=== PATIENT | female | born 1995 | race Caucasian/White ===

== ENCOUNTER 2020-05-04 11:04 | Inpatient (IN) ==
[2020-05-04] MEDS ORDERED: LORazepam 1 MG TAB SL STA (11:26)
[2020-05-04] MEDS ORDERED: THIAMINE HCL 200 MG in SODIUM CHLORIDE 0.9% 50 ML IV STA (11:27)
[2020-05-04] MEDS ORDERED: FOLIC ACID 1 MG in SYRINGE 9.8 ML IV STA (11:27)
[2020-05-04] MEDS ORDERED: SODIUM CHLORIDE 0.9% 1000ML 1,000 ML IV SCH (11:30)
--- NOTE | 2020-05-04 11:36 | Emergency Department Note ---
Impression & Plan Alcohol withdrawal, Alcohol use disorder, Medical marijuana use ED Provider Note CHIEF COMPLAINT: Vomiting, chest pain, alcohol withdrawal HISTORY OF PRESENTING ILLNESS: This is a 24-year-old female who presents to the emergency department by private vehicle with complaint of intractable vomiting for the past 2 days. The patient reports a history of alcohol dependence, and notes that she has been drinking every day for the past 2 years. She states she drinks about 8 shots worth of vodka a day. She states that her family and friends were worried about her and wanted her to stop drinking so she recently decided to try cutting back on her alcohol intake. She states she began to deve lop withdrawal symptoms including feeling shaky and having nausea and vomiting a few days ago. She has not been able to keep anything down since then. She is worried she is going through alcohol withdrawal. Her last tolerated drink was 2 days ago, but she states she has still been sipping on vodka yesterday and today to try to help with her symptoms, although she states she just vomits it back up. She denies any previous hospitalizations for alcohol withdrawal and has never been in rehab before. She is not interested in rehab today. She states that she is having chest pain and abdominal pain that she describes as tightness and pressure, burning, constant, and she rates the pain 8/10. She denies shortness of breath. She also uses medical marijuana to manage her anxiety and states she uses this pretty much every day for the past few years. She states that she feels like she is having a panic attack right now. She denies any recent fevers or chills, diarrhea, cough or URI symptoms. She denies SI/HI. REVIEW OF SYSTEMS: A complete 10 point review of systems was reviewed with the patient with pertinent positives and negatives as per history of present illness. All else were negative. PAST MEDICAL HISTORY: Anxiety, depression SOCIAL HISTORY: Lives at home, denies tobacco use, reports daily alcohol and marijuana use ALLERGIES: No known allergies PHYSICAL EXAM: CONSTITUTIONAL: Alert and cooperative. Ill-appearing and appears very anxious and uncomfortable, actively vomiting and dry heaving. Diaphoretic. Dehydrated. HEENT: Normocephalic, atraumatic. PERRL, EOMI. Pharynx normal. Dry mucous membranes. NECK: Supple, full active range of motion without discomfort. No cervical adenopathy. RESPIRATORY: Clear to auscultation bilaterally with no wheezing, crackles, rhonchi or stridor. Equal expansion bilaterally. CARDIOVASCULAR: Tachycardic, regular rhythm with no murmurs, rubs or gallops. Normal peripheral perfusion, 2+ distal pulses in all 4 extremities. No edema. GASTROINTESTINAL: Mildly tender to palpation in the epigastric abdomen, otherwise nontender, soft and nondistended. No palpable masses or HSM. Bowel sounds present in all quadrants. No CVA tenderness bilaterally. MUSCULOSKELETAL: Full range of motion of all joints without discomfort. INTEGUMENTARY: [place], warm, diaphoretic. No rash or other significant dermatologic conditions noted. NEUROLOGIC: Alert and oriented X 4 with normal affect. No focal neurologic deficits noted. Normal strength and sensation in all 4 extremities. Normal speech. Normal gait observed. ED COURSE AND MEDICAL DECISION MAKING: CC: Patient presenting with complaint of vomiting, chest pain, alcohol withdrawal DIFFERENTIAL DIAGNOSIS: Includes, but not limited to alcohol withdrawal, cyclic vomiting syndrome, cannabis abuse, dehydration, electrolyte abnormality, acute kidney injury, acute coronary syndrome, cardiac dysrhythmia, gastroenteritis, gastritis, peptic ulcer disease, pancreatitis, among others. INTERPRETATION OF LABS: Leukocytosis, polycythemia, normal platelets, hypoglycemia, low CO2 with open anion gap, no other significant electrolyte abnormalities, normal renal function, normal liver enzymes and lipase. TSH within normal limits. Serum negative. Troponin is undetectable. UA shows 3+ ketones, 2+ glucose and 1+ protein, no signs of infection. IMAGING: XR chest 1V portable HISTORY: Atypical chest pain COMPARISON: None. FINDINGS: Questionable small hazy density within the left lung base is likely due to overlapping soft tissue. Otherwise, the lungs are clear. No pleural effusions. No pneumothorax. The heart is normal in size. IMPRESSION: No acute process. EKG: Shows sinus tachycardia with a rate of 125 bpm, normal intervals, no ST depression or elevation, no ectopy by my interpretation. No previous EKGs available for comparison. MEDICATION RECONCILIATION: I attest that I have personally reviewed the patient's current medication list. INITIAL VITAL SIGNS REVIEW: I reviewed the patient's initial vital signs and interpret them as follows: T: Afebrile; BP: Hypertensive; HR: Significantly tachycardic; RR: Within normal limits; Pulse Ox: Within normal limits on room air. MDM SUMMARY: Patient was evaluated at bedside, history and physical exam performed. Patient is alert and oriented, appears ill and is actively dry heaving and diaphoretic. No significant abdominal tenderness on exam, no acute abdomen. Patient is notably tachycardic on initial triage. She is tremulous and appears anxious as well. The patient admits to heavy alcohol use and states she was trying to cut back, she believes she is in withdrawal. Cardiac monitoring: An order was placed for continuous cardiac monitoring. The monitor shows a rate of 136 bpm with sinus tachycardia rhythm. EKG was reviewed at bedside which also shows sinus tachycardia but no acute is chemic changes. The patient was initially given sublingual Ativan to help alleviate some of her symptoms and facilitate IV placement and initiating patient's treatment. Orders were placed additionally for medical clearance labs, IV fluid bolus for hydration, IV thiamine and folate, chest x-ray to evaluate for alcohol withdrawal syndrome. Patient discussed with Dr. Leon, who agrees with my assessment, plan, and disposition. Labs and imaging reviewed as above, labs are notable for a leukocytosis and polycythemia which I suspect are due to the vomiting and dehydration. Gap is open, most likely consistent with her alcohol use. Liver enzymes and lipase are within normal limits. No acute kidney injury. Urine drug screen positive for marijuana and otherwise negative. Alcohol level is mildly elevated consistent with her recent intake, but suspected to be much lower than her baseline given that she reports drinking 8 shots of vodka per day normally. Hypoglycemia was noted on initial labs, the patient was given an amp of D50 given her significant vomiting and not eating or drinking much over the past 2 days. Repeat glucose improved. UA consistent with dehydration, negative for infection. Patient continued to complain of a lot of anxiety and vomiting, she was given additional doses of 1 mg IV Ativan and 10 mg IV Compazine. I discussed with the patient my concerns for her alcohol use and her withdrawal symptoms. She is willing to talk to the business office manager about possible inp atient treatment. Magda with the business office manager spoke with the patient and the patient is now agreeable to inpatient treatment for her alcohol use. Attempts to place the patient in an outside treatment facility were unsuccessful, there are no available treatment beds. Therefore I recommended that the patient be admitted to the hospital for detox, after which time she can be safely placed in rehab. I spoke on the phone with Dr. Wilkins, [facility] Hospitalist, who agrees to evaluate the patient for the admission. Patient reassessed multiple times throughout ED stay, she has remained hemody namically stable, her tachycardia is downtrending with IV fluids and her tremors are improved after Ativan. She is no longer actively vomiting. She also states that her chest and abdominal pain are improving. The patient was updated on all results and plan for admission here at the hospital until she is able to be placed in rehab, she verbalized understanding and was agreeable to this plan. The patient was stable at time of admission. The chart was completed utilizing [employer] Speech voice recognition software. Grammatical errors, random word insertions, pronoun errors, and incomplete sent ences are an occasional consequence of this system due to software limitations, ambient noise, and hardware issues. Any formal questions or concerns about the content, text, or information contained within the body of this dictation should be directly addressed to the nurse practitioner for clarification. Past Med/Surg History Medical History (Updated 05/04/20 @ 18:50 by ZONIA Arredondo) Alcohol use disorder Social History Smoking Status: Never smoker Hx Substance Use: Yes Preferred Language: Fijian Allergies Allergies Allergy/AdvReac Type Severity Reaction Status Date / Time No Known Allergies Allergy Unverified 05/04/20 11:48 Home Meds Home Medications Medication Instructions Recorded Confirmed Medical Marijuana 1 inh INHALATION UD 05/04/20 05/04/20 Results & Data (ED) Vital Signs Vital Signs - 24 hr 05/04/20 11:13 05/04/20 11:27 05/04/20 12:46 Temperature Temperature Source Oral Pulse Rate 158 H 132 H Pulse Rate [Apical] 125 H 134 H Pulse Rate from SpO2 Sensor 136 H Pulse Rhythm [Apical] Respiratory Rate 20 22 21 Respiratory Effort / Characteristics Non-Labored Non-Labored Respiratory Depth Normal Normal Respiratory Pattern Regular Blood Pressure 130/111 H 129/80 Blood Pressure [Right Arm] 145/91 H 129/80 Blood Pressure Mean 117 93 Blood Pressure Mean [Right Arm] 109 96 Blood Pressure Position Sitting Blood Pressure Position [Right Arm] Sitting Pulse Oximetry 96 100 97 Oxygen Delivery Method Room Air Room Air Room Air Sepsis Recent Fever Within 48 Hours No Sepsis New/Unexplained Change in Mental Status No Sepsis Action Taken by Nursing No Action Required 05/04/20 13:35 05/04/20 14:19 05/04/20 14:23 Temperature 36.7 C 36.7 C Temperature Source Oral Oral Pulse Rate 135 H Pulse Rate [Apical] 94 H Pulse Rate from SpO2 Sensor 134 H Pulse Rhythm [Apical] Regular Respiratory Rate 19 17 Respiratory Effort / Characteristics Non-Labored Respiratory Depth Normal Respiratory Pattern Regular Blood Pressure 122/70 Blood Pressure [Right Arm] 126/86 Blood Pressure Mean 74 Blood Pressure Mean [Right Arm] 99 Blood Pressure Position Blood Pressure Position [Right Arm] Pulse Oximetry 97 96 Oxygen Delivery Method Room Air Sepsis Recent Fever Within 48 Hours Sepsis New/Unexplained Change in Mental Status Sepsis Action Taken by Nursing 05/04/20 14:24 05/04/20 14:30 05/04/20 15:00 Temperature Temperature Source Pulse Rate 100 H 99 H 119 H Pulse Rate [Apical] Pulse Rate from SpO2 Sensor 101 H 111 H Pulse Rhythm [Apical] Respiratory Rate 17 18 21 Respiratory Effort / Characteristics Respiratory Depth Respiratory Pattern Blood Pressure 126/86 115/74 133/89 Blood Pressure [Right Arm] Blood Pressure Mean 109 77 96 Blood Pressure Mean [Right Arm] Blood Pressure Position Blood Pressure Position [Right Arm] Pulse Oximetry 96 97 Oxygen Delivery Method Sepsis Recent Fever Within 48 Hours Sepsis New/Unexplained Change in Mental Status Sepsis Action Taken by Nursing 05/04/20 15:30 05/04/20 15:31 Temperature Temperature Source Pulse Rate 135 H 127 H Pulse Rate [Apical] Pulse Rate from SpO2 Sensor 134 H 132 H Pulse Rhythm [Apical] Respiratory Rate 22 16 Respiratory Effort / Characteristics Respiratory Depth Respiratory Pattern Blood Pressure 125/97 Blood Pressure [Right Arm] Blood Pressure Mean 100 Blood Pressure Mean [Right Arm] Blood Pressure Position Blood Pressure Position [Right Arm] Pulse Oximetry 98 100 Oxygen Delivery Method Sepsis Recent Fever Within 48 Hours Sepsis New/Unexplained Change in Mental Status Sepsis Action Taken by Nursing Laboratory Data Result diagrams: 05/04/20 11:31 05/04/20 11:31 Lab Results 05/04/20 05/04/20 05/04/20 Range/Units 11:31 11:31 11:31 WBC Cancelled RBC Cancelled Hgb Cancelled Hct Cancelled MCV Cancelled MCH Cancelled MCHC Cancelled RDW Std Deviation Cancelled RDW Coeff of Bronson Cancelled Plt Count Cancelled MPV Cancelled Immature Gran % (Auto) Cancelled Neut % (Auto) Cancelled Lymph % (Auto) Cancelled [place] % (Auto) Cancelled Eos % (Auto) Cancelled Baso % (Auto) Cancelled Neut # (Auto) Cancelled Lymph # (Auto) Cancelled [place] # (Auto) Cancelled Eos # (Auto) Cancelled Baso # (Auto) Cancelled Immature Gran # (Auto) Cancelled Absolute Nucleated RBC Cancelled Nucleated RBC % (auto) Cancelled Neutrophils % (Manual) Cancelled Band Neutrophils % Cancelled Lymphocytes % (Manual) Cancelled Prolymphocyte % Cancelled Reactive Lymphs % (Man) Cancelled Monocytes % (Manual) Cancelled Eosinophils % (Manual) Cancelled Basophils % (Manual) Cancelled Metamyelocytes % (Man) Cancelled Myelocytes % (Man) Cancelled Promyelocytes % (Man) Cancelled Blast Cells % (Manual) Cancelled Plasma Cell % (Manual) Cancelled Other Cells % Cancelled Nucleated RBC % Cancelled Neutrophils # (Manual) Cancelled Band Neutrophils # Cancelled Total Absolute Neuts Cancelled Lymphocytes # (Manual) Cancelled Prolymphocyte # Cancelled Reactive Lymphs # Cancelled Total Abs Lymphocytes Cancelled Monocytes # (Manual) Cancelled Eosinophils # (Manual) Cancelled Basophils # (Manual) Cancelled Metamyelocytes # (Man) Cancelled Myelocytes # (Manual) Cancelled Promyelocytes # (Man) Cancelled Blast Cells # (Man) Cancelled Plasma Cell # (Manual) Cancelled Other Cells # Cancelled Nucleated RBCs # (Man) Cancelled Hypersegmented Neuts Cancelled Hyposegmented Neuts Cancelled Hypogranular Neuts Cancelled Large Granular Lymphs Cancelled # Lrg Granular Lymphs Cancelled Hairy Cells Cancelled Smudge Cells Cancelled Toxic Granulation Cancelled Toxic Vacuolation Cancelled Dohle Bodies Cancelled Elina Rods Cancelled Platelet Estimate Cancelled Hypogranular Platelets Cancelled Clumped Platelets Cancelled Giant Platelets Cancelled Platelet Satelliting Cancelled RBC Morphology Cancelled Polychromasia Cancelled Hypochromasia Cancelled Poikilocytosis Cancelled Basophilic Stippling Cancelled Anisocytosis Cancelled Microcytosis Cancelled Macrocytosis Cancelled Spherocytes Cancelled Pappenheimer Bodies Cancelled Sickle Cells Cancelled Target Cells Cancelled Tear Drop Cells Cancelled Ovalocytes Cancelled Stomatocytes Cancelled [place] Bodies Cancelled Echinocytes Cancelled Acanthocytes (Spur) Cancelled Rouleaux Cancelled RBC Agglutinates Cancelled Schistocytes Cancelled RBC Morph Comment Cancelled Sezary Cell Cancelled Sodium 140 (136-145) mmol/L Potassium 3.7 (3.5-5.1) mmol/L Chloride 103 (98-107) mmol/L Carbon Dioxide 16 L (21-32) mmol/L Anion Gap 21.0 H (3-11) BUN 13 (7-18) mg/dl Creatinine 0.77 (0.6-1.2) mg/dl Est Cr Clr Drug Dosing 95.5 ml/min Est GFR ( Amer) 125.3 Est GFR (Non-Af Amer) 108.1 BUN/Creatinine Ratio 16.2 (10-20) Glucose 63 L (70-99) mg/dl POC Glucose (70-99) mg/dl Calcium 9.7 (8.5-10.1) mg/dl Magnesium (1.8-2.4) mg/dl Total Bilirubin 1.0 (0.2-1) mg/dl AST 100 H (15-37) U/L ALT 36 (12-78) U/L Alkaline Phosphatase 72 (45-117) U/L Troponin I < 0.015 (0-0.045) ng/ml Total Protein 9.1 H (6.4-8.2) gm/dl Albumin 5.2 H (3.4-5.0) gm/dl Globulin 3.9 (2.5-4.0) gm/dl Albumin/Globulin Ratio 1.3 (0.9-2) Lipase (73-393) U/L TSH 1.270 (0.300-4.500) uIu/ml HCG, Qual (Negative) Urine Color Urine Appearance (Clear) Urine pH (4.5-7.5) Ur Specific [place] (1.000-1.030) Urine Protein (Negative) Urine Glucose (UA) (Negative) Urine Ketones (Negative) Urine Blood (Negative) Urine Nitrite (Negative) Urine Bilirubin (Negative) Urine Urobilinogen (Negative) Ur Leukocyte Esterase (Negative) Urine WBC (Auto) (0-5) /hpf Urine RBC (Auto) (0-4) /hpf U Hyaline Cast (Auto) (0-5) /lpf U Epithel Cells (Auto) (0-5) /lpf Urine Bacteria (Auto) (Negative) Salicylates < 1.7 L (2.8-20) mg/dl Urine Opiates Screen (Neg) Ur Methadone, Qual (Neg) Acetaminophen < 2 L (10-30) ug/ml Urine Barbiturates (Neg) Ur Phencyclidine (PCP) (Neg) U Amphetamin/Meth Scrn (Neg) MDMA (Ecstasy) Screen (Neg) U Benzodiazepines Scrn (Neg) Ur Cocaine Metabolite (Neg) U Marijuana (THC) Screen (Neg) Ethyl Alcohol mg/dL (0-3) mg/dl 05/04/20 05/04/20 05/04/20 Range/Units 11:31 11:31 11:31 WBC 16.88 H RBC 4.58 Hgb 17.1 H Hct 48.0 H MCV 104.8 H MCH 37.3 H MCHC 35.6 RDW Std Deviation 47.6 H RDW Coeff of Bronson 12.6 Plt Count 256 MPV 9.8 Immature Gran % (Auto) 0.2 Neut % (Auto) 80.3 Lymph % (Auto) 16.1 [place] % (Auto) 3.1 Eos % (Auto) 0.1 Baso % (Auto) 0.2 Neut # (Auto) 13.56 H Lymph # (Auto) 2.71 [place] # (Auto) 0.53 Eos # (Auto) 0.01 Baso # (Auto) 0.03 Immature Gran # (Auto) 0.04 H Absolute Nucleated RBC Nucleated RBC % (auto) Neutrophils % (Manual) Band Neutrophils % Lymphocytes % (Manual) Prolymphocyte % Reactive Lymphs % (Man) Monocytes % (Manual) Eosinophils % (Manual) Basophils % (Manual) Metamyelocytes % (Man) Myelocytes % (Man) Promyelocytes % (Man) Blast Cells % (Manual) Plasma Cell % (Manual) Other Cells % Nucleated RBC % Neutrophils # (Manual) Band Neutrophils # Total Absolute Neuts Lymphocytes # (Manual) Prolymphocyte # Reactive Lymphs # Total Abs Lymphocytes Monocytes # (Manual) Eosinophils # (Manual) Basophils # (Manual) Metamyelocytes # (Man) Myelocytes # (Manual) Promyelocytes # (Man) Blast Cells # (Man) Plasma Cell # (Manual) Other Cells # Nucleated RBCs # (Man) Hypersegmented Neuts Hyposegmented Neuts Hypogranular Neuts Large Granular Lymphs # Lrg Granular Lymphs Hairy Cells Smudge Cells Toxic Granulation Toxic Vacuolation Dohle Bodies Elina Rods Platelet Estimate Hypogranular Platelets Clumped Platelets Giant Platelets Platelet Satelliting RBC Morphology Polychromasia Hypochromasia Poikilocytosis Basophilic Stippling Anisocytosis Microcytosis Macrocytosis Spherocytes Pappenheimer Bodies Sickle Cells Target Cells Tear Drop Cells Ovalocytes Stomatocytes [place] Bodies Echinocytes Acanthocytes (Spur) Rouleaux RBC Agglutinates Schistocytes RBC Morph Comment Sezary Cell Sodium (136-145) mmol/L Potassium (3.5-5.1) mmol/L Chloride (98-107) mmol/L Carbon Dioxide (21-32) mmol/L Anion Gap (3-11) BUN (7-18) mg/dl Creatinine (0.6-1.2) mg/dl Est Cr Clr Drug Dosing ml/min Est GFR ( Amer) Est GFR (Non-Af Amer) BUN/Creatinine Ratio (10-20) Glucose (70-99) mg/dl POC Glucose (70-99) mg/dl Calcium (8.5-10.1) mg/dl Magnesium (1.8-2.4) mg/dl Total Bilirubin (0.2-1) mg/dl AST (15-37) U/L ALT (12-78) U/L Alkaline Phosphatase (45-117) U/L Troponin I (0-0.045) ng/ml Total Protein (6.4-8.2) gm/dl Albumin (3.4-5.0) gm/dl Globulin (2.5-4.0) gm/dl Albumin/Globulin Ratio (0.9-2) Lipase (73-393) U/L TSH (0.300-4.500) uIu/ml HCG, Qual Negative (Negative) Urine Color Urine Appearance (Clear) Urine pH (4.5-7.5) Ur Specific [place] (1.000-1.030) Urine Protein (Negative) Urine Glucose (UA) (Negative) Urine Ketones (Negative) Urine Blood (Negative) Urine Nitrite (Negative) Urine Bilirubin (Negative) Urine Urobilinogen (Negative) Ur Leukocyte Esterase (Negative) Urine WBC (Auto) (0-5) /hpf Urine RBC (Auto) (0-4) /hpf U Hyaline Cast (Auto) (0-5) /lpf U Epithel Cells (Auto) (0-5) /lpf Urine Bacteria (Auto) (Negative) Salicylates (2.8-20) mg/dl Urine Opiates Screen (Neg) Ur Methadone, Qual (Neg) Acetaminophen (10-30) ug/ml Urine Barbiturates (Neg) Ur Phencyclidine (PCP) (Neg) U Amphetamin/Meth Scrn (Neg) MDMA (Ecstasy) Screen (Neg) U Benzodiazepines Scrn (Neg) Ur Cocaine Metabolite (Neg) U Marijuana (THC) Screen (Neg) Ethyl Alcohol mg/dL 56.0 H (0-3) mg/dl 05/04/20 05/04/20 05/04/20 Range/Units 11:31 11:31 12:44 WBC RBC Hgb Hct MCV MCH MCHC RDW Std Deviation RDW Coeff of Bronson Plt Count MPV Immature Gran % (Auto) Neut % (Auto) Lymph % (Auto) [place] % (Auto) Eos % (Auto) Baso % (Auto) Neut # (Auto) Lymph # (Auto) [place] # (Auto) Eos # (Auto) Baso # (Auto) Immature Gran # (Auto) Absolute Nucleated RBC Nucleated RBC % (auto) Neutrophils % (Manual) Band Neutrophils % Lymphocytes % (Manual) Prolymphocyte % Reactive Lymphs % (Man) Monocytes % (Manual) Eosinophils % (Manual) Basophils % (Manual) Metamyelocytes % (Man) Myelocytes % (Man) Promyelocytes % (Man) Blast Cells % (Manual) Plasma Cell % (Manual) Other Cells % Nucleated RBC % Neutrophils # (Manual) Band Neutrophils # Total Absolute Neuts Lymphocytes # (Manual) Prolymphocyte # Reactive Lymphs # Total Abs Lymphocytes Monocytes # (Manual) Eosinophils # (Manual) Basophils # (Manual) Metamyelocytes # (Man) Myelocytes # (Manual) Promyelocytes # (Man) Blast Cells # (Man) Plasma Cell # (Manual) Other Cells # Nucleated RBCs # (Man) Hypersegmented Neuts Hyposegmented Neuts Hypogranular Neuts Large Granular Lymphs # Lrg Granular Lymphs Hairy Cells Smudge Cells Toxic Granulation Toxic Vacuolation Dohle Bodies Elina Rods Platelet Estimate Hypogranular Platelets Clumped Platelets Giant Platelets Platelet Satelliting RBC Morphology Polychromasia Hypochromasia Poikilocytosis Basophilic Stippling Anisocytosis Microcytosis Macrocytosis Spherocytes Pappenheimer Bodies Sickle Cells Target Cells Tear Drop Cells Ovalocytes Stomatocytes [place] Bodies Echinocytes Acanthocytes (Spur) Rouleaux RBC Agglutinates Schistocytes RBC Morph Comment Sezary Cell Sodium (136-145) mmol/L Potassium (3.5-5.1) mmol/L Chloride (98-107) mmol/L Carbon Dioxide (21-32) mmol/L Anion Gap (3-11) BUN (7-18) mg/dl Creatinine (0.6-1.2) mg/dl Est Cr Clr Drug Dosing ml/min Est GFR ( Amer) Est GFR (Non-Af Amer) BUN/Creatinine Ratio (10-20) Glucose (70-99) mg/dl POC Glucose 236 H (70-99) mg/dl Calcium (8.5-10.1) mg/dl Magnesium 1.8 (1.8-2.4) mg/dl Total Bilirubin (0.2-1) mg/dl AST (15-37) U/L ALT (12-78) U/L Alkaline Phosphatase (45-117) U/L Troponin I (0-0.045) ng/ml Total Protein (6.4-8.2) gm/dl Albumin (3.4-5.0) gm/dl Globulin (2.5-4.0) gm/dl Albumin/Globulin Ratio (0.9-2) Lipase 94 (73-393) U/L TSH (0.300-4.500) uIu/ml HCG, Qual (Negative) Urine Color Urine Appearance (Clear) Urine pH (4.5-7.5) Ur Specific [place] (1.000-1.030) Urine Protein (Negative) Urine Glucose (UA) (Negative) Urine Ketones (Negative) Urine Blood (Negative) Urine Nitrite (Negative) Urine Bilirubin (Negative) Urine Urobilinogen (Negative) Ur Leukocyte Esterase (Negative) Urine WBC (Auto) (0-5) /hpf Urine RBC (Auto) (0-4) /hpf U Hyaline Cast (Auto) (0-5) /lpf U Epithel Cells (Auto) (0-5) /lpf Urine Bacteria (Auto) (Negative) Salicylates (2.8-20) mg/dl Urine Opiates Screen (Neg) Ur Methadone, Qual (Neg) Acetaminophen (10-30) ug/ml Urine Barbiturates (Neg) Ur Phencyclidine (PCP) (Neg) U Amphetamin/Meth Scrn (Neg) MDMA (Ecstasy) Screen (Neg) U Benzodiazepines Scrn (Neg) Ur Cocaine Metabolite (Neg) U Marijuana (THC) Screen (Neg) Ethyl Alcohol mg/dL (0-3) mg/dl 05/04/20 05/04/20 05/04/20 Range/Units 13:32 13:32 14:47 WBC RBC Hgb Hct MCV MCH MCHC RDW Std Deviation RDW Coeff of Bronson Plt Count MPV Immature Gran % (Auto) Neut % (Auto) Lymph % (Auto) [place] % (Auto) Eos % (Auto) Baso % (Auto) Neut # (Auto) Lymph # (Auto) [place] # (Auto) Eos # (Auto) Baso # (Auto) Immature Gran # (Auto) Absolute Nucleated RBC Nucleated RBC % (auto) Neutrophils % (Manual) Band Neutrophils % Lymphocytes % (Manual) Prolymphocyte % Reactive Lymphs % (Man) Monocytes % (Manual) Eosinophils % (Manual) Basophils % (Manual) Metamyelocytes % (Man) Myelocytes % (Man) Promyelocytes % (Man) Blast Cells % (Manual) Plasma Cell % (Manual) Other Cells % Nucleated RBC % Neutrophils # (Manual) Band Neutrophils # Total Absolute Neuts Lymphocytes # (Manual) Prolymphocyte # Reactive Lymphs # Total Abs Lymphocytes Monocytes # (Manual) Eosinophils # (Manual) Basophils # (Manual) Metamyelocytes # (Man) Myelocytes # (Manual) Promyelocytes # (Man) Blast Cells # (Man) Plasma Cell # (Manual) Other Cells # Nucleated RBCs # (Man) Hypersegmented Neuts Hyposegmented Neuts Hypogranular Neuts Large Granular Lymphs # Lrg Granular Lymphs Hairy Cells Smudge Cells Toxic Granulation Toxic Vacuolation Dohle Bodies Elina Rods Platelet Estimate Hypogranular Platelets Clumped Platelets Giant Platelets Platelet Satelliting RBC Morphology Polychromasia Hypochromasia Poikilocytosis Basophilic Stippling Anisocytosis Microcytosis Macrocytosis Spherocytes Pappenheimer Bodies Sickle Cells Target Cells Tear Drop Cells Ovalocytes Stomatocytes [place] Bodies Echinocytes Acanthocytes (Spur) Rouleaux RBC Agglutinates Schistocytes RBC Morph Comment Sezary Cell Sodium (136-145) mmol/L Potassium (3.5-5.1) mmol/L Chloride (98-107) mmol/L Carbon Dioxide (21-32) mmol/L Anion Gap (3-11) BUN (7-18) mg/dl Creatinine (0.6-1.2) mg/dl Est Cr Clr Drug Dosing ml/min Est GFR ( Amer) Est GFR (Non-Af Amer) BUN/Creatinine Ratio (10-20) Glucose (70-99) mg/dl POC Glucose 102 H (70-99) mg/dl Calcium (8.5-10.1) mg/dl Magnesium (1.8-2.4) mg/dl Total Bilirubin (0.2-1) mg/dl AST (15-37) U/L ALT (12-78) U/L Alkaline Phosphatase (45-117) U/L Troponin I (0-0.045) ng/ml Total Protein (6.4-8.2) gm/dl Albumin (3.4-5.0) gm/dl Globulin (2.5-4.0) gm/dl Albumin/Globulin Ratio (0.9-2) Lipase (73-393) U/L TSH (0.300-4.500) uIu/ml HCG, Qual (Negative) Urine Color Yellow Urine Appearance Clear (Clear) Urine pH 5.0 (4.5-7.5) Ur Specific [place] 1.020 (1.000-1.030) Urine Protein 1+ H (Negative) Urine Glucose (UA) 2+ H (Negative) Urine Ketones 3+ H (Negative) Urine Blood Negative (Negative) Urine Nitrite Negative (Negative) Urine Bilirubin Negative (Negative) Urine Urobilinogen Negative (Negative) Ur Leukocyte Esterase Negative (Negative) Urine WBC (Auto) 0 (0-5) /hpf Urine RBC (Auto) 0-4 (0-4) /hpf U Hyaline Cast (Auto) 0 (0-5) /lpf U Epithel Cells (Auto) 0-5 (0-5) /lpf Urine Bacteria (Auto) Negative (Negative) Salicylates (2.8-20) mg/dl Urine Opiates Screen Neg (Neg) Ur Methadone, Qual Neg (Neg) Acetaminophen (10-30) ug/ml Urine Barbiturates Neg (Neg) Ur Phencyclidine (PCP) Neg (Neg) U Amphetamin/Meth Scrn Neg (Neg) MDMA (Ecstasy) Screen Neg (Neg) U Benzodiazepines Scrn Neg (Neg) Ur Cocaine Metabolite Neg (Neg) U Marijuana (THC) Screen Pos H (Neg) Ethyl Alcohol mg/dL (0-3) mg/dl Administered Medications Discontinued Medications Capsaicin (Capsaicin Cr 0.075% 60 Gm Tube) 1 appln EXT NOW STA Stop: 05/04/20 11:42 Last Admin: 05/04/20 11:58 Dose: 1 appln Documented by: [id number] Dextrose (Dextrose 50% 50 Ml Syringe) 50 ml IV NOW STA Stop: 05/04/20 12:16 Last Admin: 05/04/20 12:22 Dose: 50 ml Documented by: [id number] Sodium Chloride (Nss 1000ml) 1,000 mls @ 999 mls/hr IV .Q1H1M SWETHA Stop: 05/04/20 12:30 Last Infusion: 05/04/20 12:35 Dose: 0 mls/hr Documented by: [id number] Admin: 05/04/20 11:34 Dose: 999 mls/hr Documented by: [id number] Folic Acid 1 mg/ Syringe 10 mls @ 5 mls/min IV NOW STA Stop: 05/04/20 11:28 Last Admin: 05/04/20 12:28 Dose: 5 mls/min Documented by: [id number] Thiamine HCl 200 mg/ Sodium (Chloride) 52 mls @ 208 mls/hr IV NOW STA Stop: 05/04/20 11:41 Last Infusion: 05/04/20 12:43 Dose: 0 mls/hr Documented by: [id number] Admin: 05/04/20 12:28 Dose: 208 mls/hr Documented by: [id number] Lorazepam (Ativan) 1 mg in 2 mls @ 2 mls/min IV NOW STA Stop: 05/04/20 13:46 Last Admin: 05/04/20 14:08 Dose: 2 mls/min Documented by: [id number] Prochlorperazine (Compazine) 2 mls @ 1 mls/min IV ONE ONE Stop: 05/04/20 13:46 Last Admin: 05/04/20 14:07 Dose: 1 mls/min Documented by: [id number] Lorazepam (Lorazepam 1 Mg Tab) 1 mg SL NOW STA Stop: 05/04/20 11:27 Last Admin: 05/04/20 11:31 Dose: 1 mg Documented by: [id number] Discharge Plan Visit Data Chief Complaint: Alcohol Withdrawal Stated Complaint: VOMITING ED Provider: Krishna Leon ED Midlevel Provider: Sima Bermudez Discharge Problem: Alcohol withdrawal, Alcohol use disorder, Medical marijuana use Patient Disposition: Admitted As Inpatient Discharge Instructions Interventions: ED Discharge Assessment Last Done: 05/04/20 18:06 Discharge Problem: Alcohol withdrawal Qualifiers: Complication of substance-induced condition: with unspecified complication Qualified Code(s): F10.239 - Alcohol dependence with withdrawal, unspecified
[2020-05-04] MEDS ORDERED: CAPSAICIN CR 0.075% 60 GM TUBE EXT STA (11:41)
--- NOTE | 2020-05-04 11:55 | XRay Report ---
XR chest 1V portable HISTORY: Atypical chest pain COMPARISON: None. FINDINGS: Questionable small hazy density within the left lung base is likely due to overlapping soft tissue. Otherwise, the lungs are clear. No pleural effusions. No pneumothorax. The heart is normal i n size. IMPRESSION: No acute process. ACT 112: Negative or not required by law. Electronically signed by: Cyril Muhammad M.D. 05/04/2020 11:54 AM
[2020-05-04 12:03] LABS: Pregnancy Test, Serum Negative (Negative)
[2020-05-04 12:13] LABS: Hemoglobin 17.1 g/dL (12.0-16.0); Mean Corpuscular Hemoglobin 37.3 pg (25-34); Mean Corpuscular Hgb Conc 35.6 g/dL (32-36); Mean Corpuscular Volume 104.8 fL (80-100); Mean Platelet Volume 9.8 fL (7.4-10.4); Platelet Count 256 K/uL (130-400); RDW Coefficient of Variation 12.6 % (11.5-14.5); RDW Standard Deviation 47.6 fL (36.4-46.3); Red Blood Count 4.58 M/uL (4.2-5.4); White Blood Count 16.88 K/uL (4.8-10.8)
[2020-05-04 12:14] LABS: Alanine Aminotransferase 36 U/L (12-78); Albumin Level 5.2 gm/dl (3.4-5.0); Aspartate Aminotransferase 100 U/L (15-37); BUN Creatinine Ratio 16.2 (10-20); Blood Urea Nitrogen 13 mg/dl (7-18); Calcium 9.7 mg/dl (8.5-10.1); Carbon Dioxide 16 mmol/L (21-32); Chloride 103 mmol/L (98-107); Creatinine Clr Calc Pharmacy 95.5 ml/min; Est GFR (African American) 125.3; Est GFR (Non-African American) 108.1; Glucose 63 mg/dl (70-99); Potassium 3.7 mmol/L (3.5-5.1); Sodium 140 mmol/L (136-145)
[2020-05-04] MEDS ORDERED: DEXTROSE 50% 50 ML SYRINGE IV STA (12:15)
[2020-05-04 12:22] LABS: Albumin Globulin Ratio 1.3 (0.9-2); Alkaline Phosphatase 72 U/L (45-117); Globulin 3.9 gm/dl (2.5-4.0); Total Protein 9.1 gm/dl (6.4-8.2); Troponin I < 0.015 ng/ml (0-0.045)
[2020-05-04 12:31] LABS: Basophils # (auto) 0.03 K/uL (0-0.2); Basophils % (auto) 0.2 %; Eosinophils # (auto) 0.01 K/uL (0-0.5); Eosinophils % (auto) 0.1 %; Immature Granulocytes # (auto) 0.04 K/uL (0.00-0.02); Immature Granulocytes % (auto) 0.2 %; Lymphocytes # (auto) 2.71 K/uL (1.2-3.4); Lymphocytes % (auto) 16.1 %; Monocytes # (auto) 0.53 K/uL (0.11-0.59); Monocytes % (auto) 3.1 %; Neutrophils # (auto) 13.56 K/uL (1.4-6.5); Neutrophils % (auto) 80.3 %
[2020-05-04 12:54] LABS: Acetaminophen < 2 ug/ml (10-30); Salicylate < 1.7 mg/dl (2.8-20)
[2020-05-04] MEDS ORDERED: LORazepam 1 MG/2 ML VIAL IV STA ×2 (13:45→21:09)
[2020-05-04] MEDS ORDERED: PROCHLORPERAZINE 2 ML IV ONE (13:45)
[2020-05-04 13:59] LABS: Appearance Urine Clear (Clear); Bacteria Urine Automated Negative (Negative); Bilirubin Urine Negative (Negative); Blood Urine Negative (Negative); Cast Urine Automated 0 /lpf (0-5); Color Urine Yellow; Epithelial Cell Urine Auto 0-5 /lpf (0-5); Glucose Urine UA 2+ (Negative); Ketones Urine 3+ (Negative); Leukocyte Esterase Urine Negative (Negative); Nitrite Urine Negative (Negative); Protein Urine 1+ (Negative); RBC Urine Automated 0-4 /hpf (0-4); Urobilinogen Urine Negative (Negative); WBC Urine Automated 0 /hpf (0-5)
[2020-05-04 14:20] LABS: Amphetamines+Metham, Urine Neg (Neg); Barbiturates, Urine Neg (Neg); Benzodiazepine, Urine Neg (Neg); Cocaine, Urine Neg (Neg); MDMA (Ecstacy), Urine Neg (Neg); Methadone, Urine Neg (Neg); Opiate, Urine Neg (Neg); Phencyclidine, Urine Neg (Neg)
--- NOTE | 2020-05-04 15:47 | History & Physical Report ---
Date of Service May 04, 2020 Assessment & Plan (1) Alcohol withdrawal: Concerning she is having alcohol withdrawal with a positive alcohol level. 2 mg Ativan in ER making patient significantly sedated. Therefore will reduce in half our protocol IV lorazepam dosing per AWSS (2) Intractable nausea and vomiting: Suspect this will improve with treatment for alcohol withdrawal as above with lorazepam. Second line use capsaicin cream due to concern for cannabis hyperemesis syndrome Third line use ondansetron as needed (3) Alcohol use disorder: Consult child support case officer for discharge planning - patient wishes for inpatient rehab Thiamine 100 mg p.o. every morning Vitamin B12 level in a.m. (4) Medical marijuana use: Recommend cessation due to possible concern for cannabis hyperemesis syndrome. (5) Leukocytosis: Suspected stress reaction to alcohol withdrawal. Possible secondary to gastroenteritis. UA negative for infection. Chest x-ray negative for infection. Patient is nonseptic therefore will defer blood cultures but these could be considered if WBC not improving by tomorrow. (6) Hypoglycemia: Dextrose given in ER. BSG ACHS with hypoglycemia protocol (7) Increased anion gap metabolic acidosis: Suspect from alcoholic ketoacidosis. (8) Depression with anxiety: Recommend cessation of medical marijuana as above. (9) Borderline personality disorder: Admission and Anticipated Discharge Date Admission Date: 05/04/2020 History of Present Illness Chief Complaint: Nausea, vomiting Primary Care Provider: Silvia Brown MD Renetta Baumann is a 24 year old female with alcohol use disorder who presents to the ER with intractable vomiting, abdominal pain. She reports cutting back on her alcohol intake causing her intermittent nausea and vomiting for the past 2 months. Prior to this she would drink approximately 10 shots of vodka a day. More recently she has been having 6-7 shots per day. For the past 2 days because of her nausea and vomiting she has been unable have any oral intake. Asssociated increased anxiety and tremors. No hallucinations. No history of alcohol withdrawal seizures. She also smokes medical marijuana but thinks this helps her nausea if anything. Allergies Allergy/AdvReac Type Severity Reaction Status Date / Time No Known Allergies Allergy Unverified 05/04/20 11:48 Home Medications Medication Instructions Recorded Confirmed Type gabapentin 100 mg PO DAILY #3 cap 05/05/20 Rx sertraline 25 mg PO DAILY 30 Days #30 tab 05/05/20 Rx Past Med/Surg History Medical History Alcohol use disorder Borderline personality disorder Depression with anxiety Surgical History No significant past surgical history Social History Smoking Status: Never smoker Second Hand Exposure: No; Do You Dip or Chew Tobacco: No; Hx Alcohol Use: Yes Alcohol type: hard liquor Hx Substance Use: Yes Last Used Substance Other:: meth 1 month ago, LSD in October Substance Use Type Other:: LSD and meth Preferred Language: Finnish Communication Ability: Effective 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 Beliefs That Will Affect Care: None Current Living Situation: Significant Other Other Information That Helps Us Care for You: No Feels Safe at Home: Yes Safety Concerns: Feels Safe At This Time Assistive Devices: None Review of Systems Review of Systems: All systems reviewed & are unremarkable except as noted in HPI & below Physical Exam Constitutional: well developed; + not well nourished and no acute distress Eyes: PERRL, conjunctivae normal, anicteric sclerae ENMT: external ear and nose normal, oropharynx normal Neck: trachea midline Respiratory: normal respiratory effort, lungs clear to auscultation Cardiovascular: RRR, no murmur, no edema Gastrointestinal (Abdomen): normal bowel sounds, soft, nontender, no hepatosplenomegaly Musculoskeletal: no cyanosis or clubbing, extremities motor strength 5/5 Skin: no rashes, warm and dry Neurologic: moves all extremities and awake; not confused Psychiatric: A+Ox3, euthymic affect Genitourinary: no CVA tenderness Results & Data Results & Data ([facility]) Vital Signs (Past 12 Hours) Vital Signs Temp Pulse Pulse Resp BP BP Pulse Ox 05/04/20 14:23 36.7 C 94 H 17 126/86 96 05/04/20 14:19 36.7 C 05/04/20 13:35 135 H 19 122/70 97 05/04/20 12:46 132 H 134 H 21 129/80 129/80 97 05/04/20 11:27 125 H 22 145/91 H 100 05/04/20 11:13 158 H 20 130/111 H 96 Diagnostic Findings XR chest 1V portable IMPRESSION: No acute process. Medications Administered ER medications given: NSS 1 L bolus Lorazepam 1 mg sublingual Folic acid 1 mg IV Thiamine 200 mg IV Capsaicin 1 topical application Dextrose 50% 50 mL IV Lorazepam 1 mg IV Compazine 10 mg IV ECG Indication: altered mental status Rate (beats per minute): 125 Rhythm: sinus tachycardia Findings: no acute ischemic change Comparison ECG Date: no prior available Code Status & VTE Plan Code Status Full VTE Prophylaxis Plan VTE Prophylaxis will be ordered: No Reason for no VTE drug order: Treatment not indicated Reason for no VTE mechanical prophylaxis: Treatment not indicated PG Care Time/CCT Total # of Minutes Spent Total Time Spent with Patient: Total time spent is greater than 50% in coordination of care (as documented) at patient's floor/unit and/or counseling patient: Coding Level of Care Code 19474 Initial Inpt Care Lvl 3 Diagnoses Alcohol withdrawal F10.239 Intractable nausea and vomiting R11.2 Alcohol use disorder Medical marijuana use Z79.899 Leukocytosis D72.829 Hypoglycemia E16.2 Increased anion gap metabolic acidosis E87.2 Depression with anxiety F41.8 Borderline personality disorder F60.3
[2020-05-04] MEDS ORDERED: ATIVAN IV ALCOHOL WITHDRAWL IV PRN (18:29)
[2020-05-04] MEDS ORDERED: LORazepam 0.5 MG/1 ML VIAL IV PRN (18:29)
[2020-05-04] MEDS ORDERED: LORazepam 1.5 MG/3 ML VIAL IV PRN (18:29)
[2020-05-04] MEDS ORDERED: CAPSAICIN CR 0.075% 60 GM TUBE EXT PRN (18:29)
[2020-05-04] MEDS ORDERED: LORazepam 1 MG/2 ML VIAL IV PRN (18:29)
[2020-05-04] MEDS: D5W AND 1/2NSS 1,000 ML IV SCH (19:46)
[2020-05-04] MEDS: THIAMINE HCL 100 MG TAB PO SCH (19:51)
[2020-05-04] MEDS: FAMOTIDINE 20 MG in SYRINGE 3 ML IV SCH (19:51)
[2020-05-04] MEDS ORDERED: ONDANSETRON INJ 2 MG/ML 2 ML VIAL IV PRN (20:44)
[2020-05-04] MEDS ORDERED: GLUCOSE 40% GEL 15 GM TUBE PO PRN (22:07)
[2020-05-04] MEDS ORDERED: GLUCAGON FOR INJ 1 MG VIAL SQ PRN (22:07)
[2020-05-04] MEDS ORDERED: GLUCOSE 10 TABS/TUBE PO PRN (22:07)
[2020-05-04] MEDS ORDERED: DEXTROSE 50% 50 ML SYRINGE IV PRN (22:07)
[2020-05-04] MEDS ORDERED: CARBOHYDRATES FOR HYPOGLYCEMIA PO PRN (22:07)
[2020-05-05] MEDS ORDERED: MIRTAZAPINE TAB 15 MG TAB PO STA (04:43)
[2020-05-05] MEDS: D5W AND 1/2NSS 1,000 ML IV SCH (04:58)
[2020-05-05 06:28] LABS: Basophils # (auto) 0.01 K/uL (0-0.2); Basophils % (auto) 0.1 %; Eosinophils # (auto) 0.04 K/uL (0-0.5); Eosinophils % (auto) 0.6 %; Hematocrit (blood only) 39.2 % (37-47); Hemoglobin 13.7 g/dL (12.0-16.0); Immature Granulocytes # (auto) 0.02 K/uL (0.00-0.02); Immature Granulocytes % (auto) 0.3 %; Lymphocytes # (auto) 1.19 K/uL (1.2-3.4); Lymphocytes % (auto) 16.7 %; Mean Corpuscular Hemoglobin 36.4 pg (25-34); Mean Corpuscular Hgb Conc 34.9 g/dL (32-36); Mean Corpuscular Volume 104.3 fL (80-100); Mean Platelet Volume 9.4 fL (7.4-10.4); Monocytes % (auto) 11.2 %; Neutrophils # (auto) 5.06 K/uL (1.4-6.5); Neutrophils % (auto) 71.1 %; Platelet Count 154 K/uL (130-400); RDW Coefficient of Variation 12.4 % (11.5-14.5); RDW Standard Deviation 46.8 fL (36.4-46.3); Red Blood Count 3.76 M/uL (4.2-5.4); White Blood Count 7.12 K/uL (4.8-10.8)
--- NOTE | 2020-05-05 06:47 | Electrocardiogram Report ---
Test Reason : Blood Pressure : / mmHG Vent. Rate : 125 BPM Atrial Rate : 125 BPM P-R Int : 144 ms QRS Dur : 070 ms QT Int : 322 ms P-R-T Axes : 073 086 019 degrees QTc Int : 464 ms Sinus tachycardia Biatrial enlargement Cannot rule out Anterior infarct , age undetermined Abnormal ECG No previous ECGs available Confirmed by Nino Zhang ([id number]) on 05/05/2020 6:47:38 AM Referred By: Confirmed By:Nino Zhang
[2020-05-05 06:58] LABS: Albumin Level 4.1 gm/dl (3.4-5.0); Creatinine Clr Calc Pharmacy 117.9 ml/min; Est GFR (African American) 148.7; Est GFR (Non-African American) 128.3; Potassium 3.7 mmol/L (3.5-5.1)
[2020-05-05 07:01] LABS: Albumin Globulin Ratio 1.1 (0.9-2); Bilirubin,Total 1.5 mg/dl (0.2-1); Globulin 3.7 gm/dl (2.5-4.0); Total Protein 7.8 gm/dl (6.4-8.2)
[2020-05-05] MEDS: THIAMINE HCL 100 MG TAB PO SCH (08:18)
[2020-05-05] MEDS ORDERED: FOLIC ACID 1 MG TAB PO SCH (09:00)
[2020-05-05] MEDS: FAMOTIDINE 20 MG in SYRINGE 3 ML IV SCH (09:55)
[2020-05-05] MEDS ORDERED: GABAPENTIN 400 MG CAP PO ONE (16:00)
--- NOTE | 2020-05-05 17:32 | Discharge Summary ---
Date of Service May 05, 2020 Admission HPI Per Admitting Provider Renetta Baumann is a 24 year old female with alcohol use disorder who presents to the ER with intractable vomiting, abdominal pain. She reports cutting back on her alcohol intake causing her intermittent nausea and vomiting for the past 2 months. Prior to this she would drink approximately 10 shots of vodka a day. More recently she has been having 6-7 shots per day. For the past 2 days because of her nausea and vomiting she has been unable She also smokes medical marijuana but thinks this helps her nausea if anything. Admission Exam Per Admitting Provider Constitutional: well developed; + not well nourished and no acute distress Eyes: PERRL, conjunctivae normal, anicteric sclerae ENMT: external ear and nose normal, oropharynx normal Neck: trachea midline Respiratory: normal respiratory effort, lungs clear to auscultation Cardiovascular: RRR, no murmur, no edema Gastrointestinal (Abdomen): normal bowel sounds, soft, nontender, no hepatosplenomegaly Musculoskeletal: no cyanosis or clubbing, extremities motor strength 5/5 Skin: no rashes, warm and dry Neurologic: moves all extremities and awake; not confused Psychiatric: A+Ox3, euthymic affect Genitourinary: no CVA tenderness Principal Diagnosis alcohol withdrawal nausea and vomiting Discharge Exam Constitutional Tired-appearing 24 year old female who is sitting on her hospital bed upon my arrival. She is interactive and engaged throughout our conversation, and opens up the more we talk. NAD. Eyes + anicteric sclerae Respiratory normal respiratory effort, lungs clear to auscultation Cardiovascular RRR, no murmur, no edema Gastrointestinal (Abdomen) normal bowel sounds, soft, nontender, no hepatosplenomegaly Neurologic no asterixis Psychiatric A+Ox3, euthymic affect Discharge Data Allergies Allergy/AdvReac Type Severity Reaction Status Date / Time No Known Allergies Allergy Unverified 05/04/20 11:48 Consultations 05/04/20 15:39 ED Decision to Admit Stat 05/04/20 18:29 Consult Case Management - Discharge Planning Routine Hospital Course (1) Alcohol withdrawal: Renetta is a 24-year-old female with a notable history of depression and anxiety who presented to [facility] on 05/04 for intractable vomiting and abdominal pain for about two days, found to have an alcohol level on arrival. Her last reported/ingested drink was approx. 2 days ago. She remained hemodynamically stable throughout her stay. Alcohol Withdrawal - Clinically, patient reported significant nausea and vomiting for about 2 days prior to her arrival to the ER. Also reported to experience increased anxiety and tremors. No prior h/o alcohol withdrawal seizures - Diagnostically, was found to have mild transaminitis throughout stay (AST 100->58), increased anion gap metabolic acidosis, hypoglycemia, and elevated MCV -- all likely d/t chronic alcohol use and withdrawal - Last ingested drink was approx. 2 days prior to admission per patient - In the ER, found to have alcohol level of 56 mg/dL alongside +THC - AWSS protocol utilized -- patient did receive Ativan 2mg in ED, and an additional 1mg dose x 2 throughout her stay - Throughout her two days here, did show marked improvement in symptoms as well as goals for cessation (see below) - Thiamine 100mg PO qAM - Upon discharge: given that her second day here was her 4th day out from last drink, proceeded with gabapentin taper as follows: 400mg x 1 (given in hospital) --> 200mg on Day 1 of d/c --> 100mg on Day 2 of d/c - Hemodynamically stable prior to d/c Alcohol Use Disorder - Significant time was spent during this admission discussing alcohol use as well as goals of care moving forward - Was found to have mild transaminitis throughout stay (AST 100-->58 on day 2) - Notes that she has been utilizing anywhere from 8-10 shots of Vodka daily and would "...get [her] calories from them" - Initially, patient expressed desire to proceed with inpatient rehab: however, throughout her stay, did wish to return to outpatient AUD support group which she has attended in the past - Case management was consulted and worked closely with patient as well - Does note that alcohol has been something that has helped her with feelings of anxiety - Moving forward, would like help discontinuing alcohol use so similar hospitalizations don't occur again: - Discussed anxiety and depression management, as below - Upon d/c, was very interested in starting PO naltrexone in the outpatient setting: spent significant time with education on this and possible benefits - Prior to d/c, she did call her fiancee (who she will be returning home with) to discard/hide all the alcohol in the house so she wouldn't utilize Nausea and Vomiting - Likely from alcohol withdrawal, but may have been a component of CHS, too - Improved throughout stay; not present on admission - Can consider d/c of medical marijuana in outpatient setting Anxiety and Depression - Patient does report worsening feelings of both anxiety and depression (anxiety>depression in severity) over the past several months - Says that this anxiety has become bad enough to the point where she'll have to recluse herself from situations / being around other people / has affected ADLs - Has engaged in self-harming behavior in the past, in the form of cutting her wrists -- last time, ~3mo ago per patient. - Was put on one-to-one during her stay here out of initial concerns for further self-harm - Consistently denied SI/HI throughout stay prior to d/c - Notes alcohol aids with her symptoms of anxiety - Amenable to starting sertraline 25mg PO once daily upon d/c with further w/u in the outpatient setting - Do feel with these two problems optimized, AUD control will have better chance of success / change - Advise caution with medical marijuana use, as above -- continue to follow in outpatient setting Borderline Personality Disorder: Noted, as above. Leukocytosis: Noted on admission. Likely reactive from stress of withdrawal. Resolved prior to d/c Hypoglycemia: Noted on admission to 63. Given dextrose in ER. Followed throughout stay, resolved day of d/c (2) Intractable nausea and vomiting: (3) Alcohol use disorder: (4) Medical marijuana use: (5) Leukocytosis: (6) Hypoglycemia: (7) Increased anion gap metabolic acidosis: (8) Depression with anxiety: (9) Borderline personality disorder: Total Time Total Time Spent Total Time Spent (In Minutes): 1 night Total Time Includes: Examination of the Patient, Discharge Planning, Medication Reconciliation, Communication With Other Providers and Other Discharge Plan Discharge Items Patient Disposition: Home - Self-Care Reason For Visit: ALCOHOL WITHDRAWAL Discharge Diagnosis: alcohol withdrawal Condition on Discharge: Good Activity: Per Instructions section Non-emergency contact: Primary Care Provider and Hospitalist Call non-emergency contact if: you have any medication questions and your symptoms worsen Follow-up/Referrals: Silvia Brown MD [Primary Care Provider] - Diet: Regular Addtl Attending Provider Instructions: You were seen at [facility] on 05/04-05/05 for nausea and vomiting, alongside concern for alcohol withdrawal -- you noted that your last drink you were able to keep down was on ~05/02. Upon your admission, you underwent several lab tests, which did demonstrate the presence of alcohol in the blood alongside a mild elevation in liver enzymes. This elevation demonstrates a mild degree of liver damage caused, likely, by the directly of the alcohol. You were monitored throughout your time here for the effects of alcohol withdrawal. You received some medication to help with anxiety and nausea during this time. Because you demonstrated continued improvement throughout your stay, we spent significant time discussing plans for moving forward. In this plan includes management plans for anxiety and alcohol dependence. As we discussed, the two problems can be heavily interrelated, but also require their own separate treatment. For anxiety, we discussed initiating a medication -- sertraline (Zoloft) -- to help your symptoms; this will also require follow-ups with a primary care provider and possibly contribution from therapy. For alcohol dependence, we discussed many options for this moving forward, including inpatient vs. outpatient rehabilitation strategies. In addition to maintaining PCP follow-up and a goal of initiating naltrexone, you also were seeking to pursue an outpatient alcohol dependence support group. You were amenable to setting this up on discharge. You are to return home with your fiancee and schedule a follow-up visit with your PCP, who we will help you establish. You will receive a call soon after discharge to help set this up. As discussed, you have had him discard of alcohol in the house as a safety measure during this transition. Medication additions/changes are discussed below. In the interim, it is going to be very important to follow-up with your PCP and support group. If you have any question or concerns prior, please always feel free to reach out. If you, at any point, experience intractable nausea / vomiting, tremors, or if someone observes you have a seizure (or other symptoms of alcohol withdrawal, including hallucinations), please immediately report to the ER or call 911 for evaluation. MEDICATION ADDITIONS: - Gabapentin (Neurontin) 200mg once tomorrow, 100mg once the day after - Sertraline (Zoloft) 25mg once daily -- maintain frequent follow-up with your PCP, as there is room to go up on this if needed - Discuss starting Naltrexone with your PCP as we discussed in the hospital. Pending Studies at Discharge: No Stand-Alone Forms: My [facility], Work/School Release (Inpt), Smoking Cessation Medications and DC Order Prescriptions: New sertraline 25 mg tablet 25 mg PO DAILY 30 Days Qty: 30 RF: 0 gabapentin 100 mg capsule 100 mg PO DAILY Qty: 3 RF: 0 Discontinued Medical Marijuana 1 inh inhalation UD RF: 0 Discharge Orders: Discharge Order (Routine); Ordered 05/05/20 Ordered By: Aquilino Wiseamn Admission Data Admit Date/Time: 05/04/20 15:51 Attending Provider: Rosario Montoya Admit Provider: Dario Wilkins Primary Care Provider: Silvia Brown Other Providers: Dario Wilkins Other Interventions: Discharge Summary Assessment (RN) Last Done: 05/05/20 17:47 Supervising Physician Co-Signing Physician Notes Resident Physician Supervision Note: I independently interviewed and examined the patient and verified the [place] history and physical, reviewed labs and image studies, discussed the case with the resident Dr. Wiseman and agree with the findings and care plan. Resident Activity Tracking Resident Involvement: Resident Care Provided Care Provided: Adult Hospital Medicine
[2020-05-07 00:43] LABS: Marijuana Quant, GCMS Urine 45 ng/mL (<5)
--- NOTE | 2020-05-09 10:26 | Coding Query ---
CODING QUERY To promote full compliance with coding requirements relating to patient care, provider participation is requested in all cases of ceo and founder uncertainty. Please assist us with the question(s) below: Coding Question(s): Alcohol use and alcohol withdrawal were both diagnosed during this admission; however, they cannot be coded together. Please clarify below: Physician's Response(s): ( ) Alcohol use, uncomplicated ( ) complicated (please specify) ( x ) Alcohol abuse, uncomplicated ( x ) with withdrawal ( ) other complications (please specify) ( ) Alcohol dependence, uncomplicated ( ) with withdrawal ( ) other complications (please specify) Thank you Aleksandra Hall Principal Diagnosis: "that condition established after study, to be chiefly responsible for occasioning the admission of the patient to the hospital for care." Co-Existing Principal Diagnosis: "when two or more diagnoses equally meet the criteria for principal diagnosis as determined by the circumstances of admission, diagnostic work up, and/or therapy provided, and the Alphabetic Index, Tabular List, or another coding guideline does not provide sequencing direction, any one of the diagnoses may be sequenced first." "When the physician has documented what appears to be a current diagnosis in the body of the record, but has not included the diagnosis in the final diagnostic statement, the physician should be asked whether the diagnosis should be added." (Source Coding [facility] 2 QTR90. p3-4) DOE
== END 2020-05-05 19:10 | disposition home or self-care (01) | DRG 897 ==
LOC: ED 11:04 → 3W 15:51 → SUATTDRO 15:51 → 3W 18:06

== ENCOUNTER 2020-08-20 19:25 | Inpatient (IN) ==
--- NOTE | 2020-08-20 20:01 | Emergency Department Note ---
Impression & Plan Mood disorder, Suicidal ideation ED Provider Note NAME: JERRY BARAHONA AGE: 25 SEX: F : 1995 ARRIVES VIA: [employer] INFORMANT: Patient, ED PROVIDER(S): Rohit Landrum DO CHIEF COMPLAINT: Mental health evaluation HPI: The patient is a 25-year-old female who presented to the emergency department for an evaluation of mental health issues. The patient has some underlying mental health issues but currently is not taking any medications. She has borderline personality disorder as well as depression. She had a suic ten attempt in 2016. At that time she was not admitted to the hospital. The patient called crisis last evening. At that time she was able to be contracted for safety and was advised to follow-up with them today. When she followed up today she was advised to consider inpatient treatment but then left prior to a final disposition being made. For this reason a 302 petition was filled out and the patient was brought to the emergency department. The patient initially denied that there was any discussion of suicidal ideation however the 302 petition was reviewed by me in the middle of the family caseworker. The patient at this time denies having any chest pain. She denies having any fever. She states she was drinking some alcohol today with lunch but it was a very small amount. She denies having any suicidal or homicidal ideation at this time. ROS: See above HPI for pertinent positives & negatives. A total of 10 systems reviewed and were otherwise negative. PAST MEDICAL HISTORY: See Below PAST SURGICAL HISTORY: See Below FAMILY HISTORY: See Below SOCIAL HISTORY: See Below HOME MEDICATIONS: See Below ALLERGIES: See Below VITALS: See Below PHYSICAL EXAMINATION: GENERAL: The patient is awake and alert. The patient is somewhat guarded. EYES: The conjunctivae are clear. The pupils are round and reactive. EARS, NOSE, MOUTH AND THROAT: The nose is without any evidence of any deformity. Mucous membranes are moist. Tongue is midline. NECK: The neck is nontender and supple. RESPIRATORY: Normal respiratory effort is noted there is no evidence of wheezing rhonchi or rales CARDIOVASCULAR: Tachycardic rate with regular rhythm was noted. There was no definite murmur. GASTROINTESTINAL: The abdomen is soft. Abdomen is nontender. MUSCULOSKELETAL/EXTREMITIES: There is no evidence of gross deformity full range of motion is noted in the hips and shoulders. SKIN: There is no obvious evidence of any rash. There are no petechiae, pallor or cyanosis noted. NEUROLOGIC: Patient is awake alert and oriented x3 strength is symmetric patellar reflexes are 2+ bilaterally PSYCH: The patient is awake and alert. She makes good eye contact for most of the evaluation. Patient is currently denying any suicidal homicidal ideation. Affect is somewhat animated. MEDICAL DECISION MAKING: The patient is a 25-year-old female who presented to the emergency department for a mental health evaluation. The patient initially arrived at the emergency department denying everything that was in the 302 petition. The patient was evaluated. She was medically cleared in the emergency department. She was evaluated by the mental health family caseworker. She continues to deny any suicidal ideation. The mental health delegate explored the 302 petition further. I do feel the patient may be at significant risk to harming her self given her poor insight into her overall condition. For this reason the 302 petition was upheld. Bed search is currently underway. Triage Nursing notes reviewed. Prior medical records reviewed Vital Signs: reviewed and remarkable for no significant abnormalities Differential diagnosis: Mood disorder, infection, hypoglycemia, electrolyte abnormalities, cardiac sources, intracerebral event, toxicologic, trauma, neurologic, as well as other pathologies. ER treatment provided: See below Diagnostics interpreted by me: ECG: none Laboratory studies: As stated above and show below. Imaging studies: See below Consultation(s): none Past Med/Surg History Medical History Alcohol use disorder Alcohol withdrawal Borderline personality disorder Depression with anxiety Surgical History No significant past surgical history Social History Smoking Status: Never smoker Second Hand Exposure: No; Hx Alcohol Use: Yes Alcohol type: hard liquor Hx Substance Use: Yes Last Used Substance Other:: meth 1 month ago, LSD in October Substance Use Type Other:: LSD and meth Preferred Language: [place] Communication Ability: Effective Still Runner Required: No Beliefs That Will Affect Care: None Current Living Situation: Significant Other Feels Safe at Home: Yes Assistive Devices: None Allergies Allergies Allergy/AdvReac Type Severity Reaction Status Date / Time fluoxetine [From Prozac] AdvReac Severe High Verified 08/20/20 19:53 anxiety ~ Caused exteme pain in upper body sertraline [From Zoloft] AdvReac Severe High Verified 08/20/20 19:53 anxiety ~ Caused extreme pain in upper body Home Meds Home Medications Medication Instructions Recorded Confirmed No Known Home Medications 08/20/20 08/20/20 Results & Data (ED) Vital Signs Vital Signs - 24 hr 08/20/20 19:38 08/20/20 22:52 Temperature 36.8 C Temperature Source Oral Pulse Rate 128 H Pulse Rate [Finger] 85 Respiratory Rate 18 18 Respiratory Effort / Characteristics Non-Labored Spontaneous Non-Labored Spontaneous Respiratory Depth Normal Normal Blood Pressure 132/76 Blood Pressure [Right Arm] 120/74 Blood Pressure Mean 94 Blood Pressure Mean [Right Arm] 89 Pulse Oximetry 98 98 Oxygen Delivery Method Room Air Room Air Sepsis Recent Fever Within 48 Hours No Sepsis New/Unexplained Change in Mental Status No Sepsis Action Taken by Nursing No Action Required Home Medications Current Medication List: was personally reviewed by me Laboratory Data Attestation: I reviewed the patient's lab results. Result diagrams: 08/20/20 20:16 08/20/20 20:16 Lab Results 08/20/20 08/20/20 08/20/20 Range/Units 19:40 19:40 19:57 WBC (4.8-10.8) K/uL RBC (4.2-5.4) M/uL Hgb (12.0-16.0) g/dL Hct (37-47) % MCV (80-100) fL MCH (25-34) pg MCHC (32-36) g/dL RDW Std Deviation (36.4-46.3) fL RDW Coeff of Bronson (11.5-14.5) % Plt Count (130-400) K/uL MPV (7.4-10.4) fL Immature Gran % (Auto) % Neut % (Auto) % Lymph % (Auto) % [place] % (Auto) % Eos % (Auto) % Baso % (Auto) % Neut # (Auto) (1.4-6.5) K/uL Lymph # (Auto) (1.2-3.4) K/uL [place] # (Auto) (0.11-0.59) K/uL Eos # (Auto) (0-0.5) K/uL Baso # (Auto) (0-0.2) K/uL Immature Gran # (Auto) (0.00-0.02) K/uL Sodium (136-145) mmol/L Potassium (3.5-5.1) mmol/L Chloride (98-107) mmol/L Carbon Dioxide (21-32) mmol/L Anion Gap (3-11) BUN (7-18) mg/dl Creatinine (0.6-1.2) mg/dl Est Cr Clr Drug Dosing ml/min Est GFR ( Amer) Est GFR (Non-Af Amer) BUN/Creatinine Ratio (10-20) Glucose (70-99) mg/dl Calcium (8.5-10.1) mg/dl Total Bilirubin (0.2-1) mg/dl AST (15-37) U/L ALT (12-78) U/L Alkaline Phosphatase (45-117) U/L Total Protein (6.4-8.2) gm/dl Albumin (3.4-5.0) gm/dl Globulin (2.5-4.0) gm/dl Albumin/Globulin Ratio (0.9-2) TSH (0.300-4.500) uIu/ml HCG, Qual (Negative) Urine Color Yellow Urine Appearance Clear (Clear) Urine pH 6.5 (4.5-7.5) Ur Specific [place] 1.008 (1.000-1.030) Urine Protein Negative (Negative) Urine Glucose (UA) Negative (Negative) Urine Ketones Negative (Negative) Urine Blood 2+ H (Negative) Urine Nitrite Negative (Negative) Urine Bilirubin Negative (Negative) Urine Urobilinogen Negative (Negative) Ur Leukocyte Esterase Negative (Negative) Urine WBC (Auto) 1-5 (0-5) /hpf Urine RBC (Auto) 0-4 (0-4) /hpf U Hyaline Cast (Auto) 1-5 (0-5) /lpf U Epithel Cells (Auto) 5-10 H (0-5) /lpf Urine Bacteria (Auto) 1+ H (Negative) Urine Mucus Present A (None Prsent) Urine Yeast Budding A (None Prsent) Salicylates (2.8-20) mg/dl Urine Opiates Screen Neg (Neg) Ur Methadone, Qual Neg (Neg) Acetaminophen (10-30) ug/ml Urine Barbiturates Neg (Neg) Ur Phencyclidine (PCP) Neg (Neg) U Amphetamin/Meth Scrn Neg (Neg) MDMA (Ecstasy) Screen Neg (Neg) U Benzodiazepines Scrn Neg (Neg) Ur Cocaine Metabolite Neg (Neg) U Marijuana (THC) Screen Pos H (Neg) Ethyl Alcohol mg/dL (0-3) mg/dl COVID-19 Eval Order CovFluRsv at [facility] SARS-CoV-2 (PCR) (Negative) Influenza Type A (PCR) (Neg) Influenza Type B (PCR) (Neg) RSV (RT-PCR) (Neg) 08/20/20 08/20/20 08/20/20 Range/Units 19:57 20:16 20:16 WBC 10.32 (4.8-10.8) K/uL RBC 4.14 L (4.2-5.4) M/uL Hgb 13.9 (12.0-16.0) g/dL Hct 38.0 (37-47) % MCV 91.8 (80-100) fL MCH 33.6 (25-34) pg MCHC 36.6 H (32-36) g/dL RDW Std Deviation 42.4 (36.4-46.3) fL RDW Coeff of Bronson 12.5 (11.5-14.5) % Plt Count 262 (130-400) K/uL MPV 9.9 (7.4-10.4) fL Immature Gran % (Auto) 0.1 % Neut % (Auto) 78.7 % Lymph % (Auto) 15.9 % [place] % (Auto) 4.8 % Eos % (Auto) 0.3 % Baso % (Auto) 0.2 % Neut # (Auto) 8.12 H (1.4-6.5) K/uL Lymph # (Auto) 1.64 (1.2-3.4) K/uL [place] # (Auto) 0.50 (0.11-0.59) K/uL Eos # (Auto) 0.03 (0-0.5) K/uL Baso # (Auto) 0.02 (0-0.2) K/uL Immature Gran # (Auto) 0.01 (0.00-0.02) K/uL Sodium 138 (136-145) mmol/L Potassium 3.4 L (3.5-5.1) mmol/L Chloride 105 (98-107) mmol/L Carbon Dioxide 25 (21-32) mmol/L Anion Gap 8.0 (3-11) BUN 12 (7-18) mg/dl Creatinine 0.76 (0.6-1.2) mg/dl Est Cr Clr Drug Dosing 90.7 ml/min Est GFR ( Amer) 126.4 Est GFR (Non-Af Amer) 109.0 BUN/Creatinine Ratio 15.7 (10-20) Glucose 81 (70-99) mg/dl Calcium 8.9 (8.5-10.1) mg/dl Total Bilirubin 0.6 (0.2-1) mg/dl AST 21 (15-37) U/L ALT 31 (12-78) U/L Alkaline Phosphatase 56 (45-117) U/L Total Protein 7.8 (6.4-8.2) gm/dl Albumin 4.5 (3.4-5.0) gm/dl Globulin 3.3 (2.5-4.0) gm/dl Albumin/Globulin Ratio 1.4 (0.9-2) TSH 1.550 (0.300-4.500) uIu/ml HCG, Qual (Negative) Urine Color Urine Appearance (Clear) Urine pH (4.5-7.5) Ur Specific [place] (1.000-1.030) Urine Protein (Negative) Urine Glucose (UA) (Negative) Urine Ketones (Negative) Urine Blood (Negative) Urine Nitrite (Negative) Urine Bilirubin (Negative) Urine Urobilinogen (Negative) Ur Leukocyte Esterase (Negative) Urine WBC (Auto) (0-5) /hpf Urine RBC (Auto) (0-4) /hpf U Hyaline Cast (Auto) (0-5) /lpf U Epithel Cells (Auto) (0-5) /lpf Urine Bacteria (Auto) (Negative) Urine Mucus (None Prsent) Urine Yeast (None Prsent) Salicylates (2.8-20) mg/dl Urine Opiates Screen (Neg) Ur Methadone, Qual (Neg) Acetaminophen (10-30) ug/ml Urine Barbiturates (Neg) Ur Phencyclidine (PCP) (Neg) U Amphetamin/Meth Scrn (Neg) MDMA (Ecstasy) Screen (Neg) U Benzodiazepines Scrn (Neg) Ur Cocaine Metabolite (Neg) U Marijuana (THC) Screen (Neg) Ethyl Alcohol mg/dL (0-3) mg/dl COVID-19 Eval Order SARS-CoV-2 (PCR) NEGATIVE (Negative) Influenza Type A (PCR) Negative (Neg) Influenza Type B (PCR) Negative (Neg) RSV (RT-PCR) Negative (Neg) 08/20/20 08/20/20 08/20/20 Range/Units 20:16 20:16 20:16 WBC (4.8-10.8) K/uL RBC (4.2-5.4) M/uL Hgb (12.0-16.0) g/dL Hct (37-47) % MCV (80-100) fL MCH (25-34) pg MCHC (32-36) g/dL RDW Std Deviation (36.4-46.3) fL RDW Coeff of Bronson (11.5-14.5) % Plt Count (130-400) K/uL MPV (7.4-10.4) fL Immature Gran % (Auto) % Neut % (Auto) % Lymph % (Auto) % [place] % (Auto) % Eos % (Auto) % Baso % (Auto) % Neut # (Auto) (1.4-6.5) K/uL Lymph # (Auto) (1.2-3.4) K/uL [place] # (Auto) (0.11-0.59) K/uL Eos # (Auto) (0-0.5) K/uL Baso # (Auto) (0-0.2) K/uL Immature Gran # (Auto) (0.00-0.02) K/uL Sodium (136-145) mmol/L Potassium (3.5-5.1) mmol/L Chloride (98-107) mmol/L Carbon Dioxide (21-32) mmol/L Anion Gap (3-11) BUN (7-18) mg/dl Creatinine (0.6-1.2) mg/dl Est Cr Clr Drug Dosing ml/min Est GFR ( Amer) Est GFR (Non-Af Amer) BUN/Creatinine Ratio (10-20) Glucose (70-99) mg/dl Calcium (8.5-10.1) mg/dl Total Bilirubin (0.2-1) mg/dl AST (15-37) U/L ALT (12-78) U/L Alkaline Phosphatase (45-117) U/L Total Protein (6.4-8.2) gm/dl Albumin (3.4-5.0) gm/dl Globulin (2.5-4.0) gm/dl Albumin/Globulin Ratio (0.9-2) TSH (0.300-4.500) uIu/ml HCG, Qual Negative (Negative) Urine Color Urine Appearance (Clear) Urine pH (4.5-7.5) Ur Specific [place] (1.000-1.030) Urine Protein (Negative) Urine Glucose (UA) (Negative) Urine Ketones (Negative) Urine Blood (Negative) Urine Nitrite (Negative) Urine Bilirubin (Negative) Urine Urobilinogen (Negative) Ur Leukocyte Esterase (Negative) Urine WBC (Auto) (0-5) /hpf Urine RBC (Auto) (0-4) /hpf U Hyaline Cast (Auto) (0-5) /lpf U Epithel Cells (Auto) (0-5) /lpf Urine Bacteria (Auto) (Negative) Urine Mucus (None Prsent) Urine Yeast (None Prsent) Salicylates < 1.7 L (2.8-20) mg/dl Urine Opiates Screen (Neg) Ur Methadone, Qual (Neg) Acetaminophen < 2 L (10-30) ug/ml Urine Barbiturates (Neg) Ur Phencyclidine (PCP) (Neg) U Amphetamin/Meth Scrn (Neg) MDMA (Ecstasy) Screen (Neg) U Benzodiazepines Scrn (Neg) Ur Cocaine Metabolite (Neg) U Marijuana (THC) Screen (Neg) Ethyl Alcohol mg/dL 97.0 H (0-3) mg/dl COVID-19 Eval Order SARS-CoV-2 (PCR) (Negative) Influenza Type A (PCR) (Neg) Influenza Type B (PCR) (Neg) RSV (RT-PCR) (Neg) Discharge Plan Visit Data Chief Complaint: Mental Health Evaluation Stated Complaint: [facility] ED Provider: Rohit Landrum Discharge Problem: Mood disorder, Suicidal ideation Forms Stand Alone Forms: My [facility], Suicide Prevention Resources Prescriptions Prescriptions: No Action No Known Home Medications RF: 0 Referrals Referrals: PCP,NO [Primary Care Provider] -
[2020-08-20 20:17] LABS: Appearance Urine Clear (Clear); Bilirubin Urine Negative (Negative); Blood Urine 2+ (Negative); Color Urine Yellow; Glucose Urine UA Negative (Negative); Ketones Urine Negative (Negative); Leukocyte Esterase Urine Negative (Negative); Nitrite Urine Negative (Negative); Protein Urine Negative (Negative); Specific Gravity Urine 1.008 (1.000-1.030); Urobilinogen Urine Negative (Negative); pH Urine 6.5 (4.5-7.5)
[2020-08-20 20:30] LABS: Basophils # (auto) 0.02 K/uL (0-0.2); Basophils % (auto) 0.2 %; Eosinophils # (auto) 0.03 K/uL (0-0.5); Eosinophils % (auto) 0.3 %; Hemoglobin 13.9 g/dL (12.0-16.0); Immature Granulocytes # (auto) 0.01 K/uL (0.00-0.02); Immature Granulocytes % (auto) 0.1 %; Lymphocytes # (auto) 1.64 K/uL (1.2-3.4); Lymphocytes % (auto) 15.9 %; Mean Corpuscular Hemoglobin 33.6 pg (25-34); Mean Corpuscular Hgb Conc 36.6 g/dL (32-36); Mean Corpuscular Volume 91.8 fL (80-100); Mean Platelet Volume 9.9 fL (7.4-10.4); Monocytes % (auto) 4.8 %; Neutrophils # (auto) 8.12 K/uL (1.4-6.5); Neutrophils % (auto) 78.7 %; Platelet Count 262 K/uL (130-400); RDW Coefficient of Variation 12.5 % (11.5-14.5); RDW Standard Deviation 42.4 fL (36.4-46.3); Red Blood Count 4.14 M/uL (4.2-5.4); White Blood Count 10.32 K/uL (4.8-10.8)
[2020-08-20 20:33] LABS: Amphetamines+Metham, Urine Neg (Neg); Barbiturates, Urine Neg (Neg); Benzodiazepine, Urine Neg (Neg); Cocaine, Urine Neg (Neg); MDMA (Ecstacy), Urine Neg (Neg); Methadone, Urine Neg (Neg); Opiate, Urine Neg (Neg); Phencyclidine, Urine Neg (Neg)
[2020-08-20 20:38] LABS: Bacteria Urine Automated 1+ (Negative); Mucus Urine Present (None Prsent); RBC Urine Automated 0-4 /hpf (0-4)
[2020-08-20 20:49] LABS: Influenza A virus by PCR Negative (Neg); Influenza B virus by PCR Negative (Neg); RSV by PCR Negative (Neg); SARS CoV2 RNA(COVID-19) InHosp NEGATIVE (Negative)
[2020-08-20 20:51] LABS: Albumin Level 4.5 gm/dl (3.4-5.0); BUN Creatinine Ratio 15.7 (10-20); Calcium 8.9 mg/dl (8.5-10.1); Creatinine Clr Calc Pharmacy 90.7 ml/min; Est GFR (African American) 126.4; Potassium 3.4 mmol/L (3.5-5.1)
[2020-08-20 20:57] LABS: Acetaminophen < 2 ug/ml (10-30); Salicylate < 1.7 mg/dl (2.8-20)
[2020-08-20 21:02] LABS: Albumin Globulin Ratio 1.4 (0.9-2); Bilirubin,Total 0.6 mg/dl (0.2-1); Globulin 3.3 gm/dl (2.5-4.0); Thyroid Stimulating Hormone 1.55 uIu/ml (0.300-4.500); Total Protein 7.8 gm/dl (6.4-8.2)
[2020-08-20 21:05] LABS: Pregnancy Test, Serum Negative (Negative)
[2020-08-21] MEDS ORDERED: hydrOXYzine HCl 25 MG TAB PO PRN (00:33)
[2020-08-21] MEDS ORDERED: LORazepam 1 MG TAB PO PRN (00:33)
[2020-08-21] MEDS ORDERED: ALUMINUM/MAGNESIUM SUSP 30 ML UDC PO PRN (00:33)
[2020-08-21] MEDS ORDERED: MAGNESIUM HYDROXIDE SUSP 30 ML UDC PO PRN (00:33)
[2020-08-21] MEDS ORDERED: BISMUTH SUBSALICYLATE LIQD 236 ML PO PRN (00:33)
[2020-08-21] MEDS ORDERED: ACETAMINOPHEN 325 MG TAB PO PRN (00:33)
[2020-08-21] MEDS ORDERED: SODIUM CHLORIDE 0.65% NA SOLN 45 ML (OCEAN) PRN (00:33)
[2020-08-21] MEDS: hydrOXYzine HCl 25 MG TAB PO PRN ×2 (01:43→21:33)
--- NOTE | 2020-08-21 08:00 | History & Physical ---
Date of Service August 21, 2020 Impression / Recommendations Impression 25-year-old female with a history of BPD, substance abuse, and treatment noncompliance who presented on a 302 involuntary commitment after multiple contacts with crisis when she reported suicidal thoughts. She has been abusing alcohol and engaging in self-injurious behavior, with poor insight into these maladaptive coping skills. She is focused on rapid discharge, and is willing to return to [facility] counseling for therapy and have a discharge planning meeting with her finadege. (1) Suicidal ideation: 08/21 - Patient denies SI and is minimizing events that led to admission. Alcohol and maladaptive personality/coping likely playing a role. -Encourage patient to attend groups, participate in therapy, work on healthy coping skills and discharge safety plan. -Family meeting with randy whom she lives with to review discharge and safety plan. (2) Borderline personality disorder: 08/21 -patient states she was given this diagnosis is after psychological testing at the [facility] psychological clinic. Recommend return to outpatient therapy to focus on using healthier coping skills. -Patient denies symptoms consistent with a major depressive disorder, and instead suicidal thoughts occur when she is intoxicated. (3) Alcohol use disorder: 08/21 - h/o alcohol withdrawal requiring medical hospitalization, on AWSS protocol here -Brief intervention was offered and accepted Intervention was greater than 5 min in length. Brief interventions include: 1. Assess Readiness to Quit, 2. Advise: Help Patient to Reduce or Abstain from Alcohol, 3. Agree: Set Specific, Feasible Goals, 4. Assist: Anticipate barriers, Problem-Solving Solutions. Social work to 5. Arrange: Referrals to appropriate treatment. Summary of intervention: The patient is in precontemplation stage with regards to transtheoretical model of change. The patient is advised to decrease alcohol consumption due to depressant effects and risk of interactions with prescription medications. The patient agreed to recovery protocol and will be provided with recovery materials to continue to education self on how to cope with their condition without drinking. (4) Cannabis abuse: 08/21 - Pt reports having a medical marijuana card, and during medical hospitalization she was advised to stop using THC due to cannabis hyperemesis syndrome, but has continued to use it. Risk Factors Assessment Male: No : Yes Do You Have Access To A Gun?: No Health Problems: No Mental Health Diagnoses: Yes Substance Use Disorders: Yes Previous Attempt: Yes Previous Attempt; Highly Lethal: Yes Hopelessness: No Smoker: No Protective Factors Assessment : No Responsible for Young Children: No Employed: Yes ([employer]) Stable Relationships: Yes Supportive Family: Yes Good Rapport with Provider: No Psychiatric History Identifying Data RENETTA BARAHONA is a 25-year-old F who currently lives in [place], has a history of borderline personality disorder, substance abuse, and depression, and was admitted on 08/21/20 00:33 on a 302 involuntary commitment for suicidality. Chief Complaint "night before last night I had a really shitty day at work, had some drinks, just wanted to vent...". History of Present Illness Patient presented to the ER overnight via police on a 302 warrant. She had called crisis the prior evening, they made a plan for her to follow-up with them the following day. She met with them yesterday, and they recommended inpatient treatment, but she left prior to a final disposition being made, so a 302 petition was completed and the patient was brought to the ER. She reported a history of multiple psychiatric diagnoses, previous suicide attempt, not in treatment currently, and indicated a desire to resume treatment. She initially denied all of the allegations in the petition, but then said "you know when you're mad and you just say things" and "I may have thrown the words suicide around here and there." Petition completed by [facility] crisis/Tonia Roca and reads: "Renetta informed this patch worker that she was having thoughts of suicide. Early this morning she walked toward the highway with intention of walking into traffic. She also stated she thought of taking a bath with an electrical device to electrocute herself. Renetta has a past attempt via hanging in 2016 and stated it was her biggest regret because it didn't work, she wishes she would have then. Renetta also self medicates with alcohol." She told ER staff she had a bad day at work, and called crisis to "vent." She also reported drinking alcohol, and had been drinking prior to presentation, although she was out at the grocery store when police contacted her, and BAL was 97. UDS also + THC. She reported superficial cutting and had several cuts on her arm which she said were self- inflicted. She reports having a medical marijuana card for anxiety, and also reported using meth and LSD. She was admitted involuntarily and placed on AWSS protocol for alcohol withdrawal. On my assessment she reports she had a bad day at work so went home and "got drunk" then called Crisis "and said a bunch of stuff I didn't mean, you know when you don't like someone at work and you say 'I just wanna strangle them!'" The following day (yesterday) the Crisis Center called her back and asked her to come in for an assessment, and she agreed as she thought they might refer her for outpatient therapy. They recommended inpatient "because they really thought I was gonna kill myself, because of what I said on the phone," and she didn't want that, so "walked out." She simultaneously claims being "browned out" when on the phone due to intoxication and stating she knows exactly what she said and it was misinterpreted. She says she is usually only suicidal when she drinks "but I can't remember the last time I was really drinking," although then reports she was drinking yesterday p/t presentation, was hospitalized a few months ago for alcohol withdrawal, and went to [facility] in Jun. but did not complete treatment and left early. She denies SI currently, states mood has been "pretty good" except for when intoxicated or upset about her job. Denies h/o ximena, psychosis, eating disorder, PTSD and OCD. Reports anxiety in the past which she feels is well controlled with marijuana. 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 Past Psychiatric History Previous Psych History: Saw Dr. Shepard at [facility] when in college. States she was initially diagnosed with ADHD "but then they ([facility]) took that away and said I had borderline personality disorder." Current Psychiatric Diagnosis: depression; anxiety; borderline personality disorder Outpatient Services: None currently, dropped out of treatment 3 months ago as she did not want to pay for them. Previously seen at the [facility] and [facility]. Previous Psych Admissions: Denies Do You Have Access To A Gun?: No History of Previous Suicide Attempt: Yes Describe Attempts in the Past: 2016 - attempted hanging Past Medication Trials: Fluoxetine -high anxiety and "extreme pain in upper body" Sertraline -high anxiety" extreme pain in upper body" Adderall - "really helped me" Allergies Allergy/AdvReac Type Severity Reaction Status Date / Time fluoxetine [From Prozac] AdvReac Severe High Verified 08/20/20 19:53 anxiety ~ Caused exteme pain in upper body sertraline [From Zoloft] AdvReac Severe High Verified 08/20/20 19:53 anxiety ~ Caused extreme pain in upper body Home Medications Medication Instructions Recorded Confirmed Type No Known Home Medications 08/20/20 08/20/20 History Family History Family History of: None Alcohol History Hx of Alcohol Use Over the Past 12 Months: Yes (at least twice weekly - two to six drinks per episode) AUDIT Total Score: 14 Smoking Use Smoking Status: Never smoker Substance History Hx of Prescription Med Misuse Over the Past 12 Months: No Hx of Over the Counter Med Misuse Over the Past 12 Months: No Hx of Inhalent Misuse Over the Past 12 Months: No Hx of Organic Substance Use Over the Past 12 Months: Yes (medical marijuana, daily) Hx of Illegal Substances/Street Drug Use Over Past 12 Months: Yes (Meth 1 month ago, LSD 10 months ago) Problems as a Result of Past Substance Use: Life out of Control, Sustained Bodily Harm (admission for alcohol withdrawal) and Other (Patient reports she make suicidal statements when under the influence) Personal History Living Arrangements: Apartment Living Arrangements Comments: In [place] with fiance and multiple roommates. They plan to move to [place] soon as he is going to grad school there ("the [place]"), and she hopes to move there by the end of the year, and they plan to move to [place] when he's done with his education. Childhood: Grew [place] in [place], came to [place] to attend [employer] and "then just ismael stuck around." Highest Grade Completed: College (2019 from [employer] with psychology degree) Employment Status: [employer] Employed ([employer] for the past 3 weeks, doesn't like it. Previously worked at [employer]) Marital Status: Living w/ Signif. Other (Patient reports she is engaged) Number Of Children: 0 Beliefs That Will Affect Care: None Current Legal Problems: No Hx Traumatic Life Events: No Patient History Medical History (Updated 08/21/20 @ 08:42 by Hannah Cervantes MD) Alcohol use disorder Alcohol withdrawal Borderline personality disorder Cannabis abuse Depression with anxiety Surgical History No significant past surgical history Social History Smoking Status: Never smoker Second Hand Exposure: No; Hx Alcohol Use: Yes Alcohol type: hard liquor Hx Substance Use: Yes Last Used Substance Other:: meth 1 month ago, LSD in October Substance Use Type Other:: LSD and meth Preferred Language: Maltese Communication Ability: Effective Early Intervention Specialist Required: No Beliefs That Will Affect Care: None Current Living Situation: Significant Other Feels Safe at Home: Yes Assistive Devices: None and Glasses Review of Systems Review of Systems: All systems reviewed & are unremarkable except as noted in HPI & below chronic nausea and vomiting Physical Exam Psychiatric: Orientation: alert and cooperative Apperance: appeared stated age Thin WF appearing stated age, wearing a sweatshirt with Ramen Noodle print on it, and black track pants. Eye Contact: + fair eye contact Motor Behavior: steady gait and station and no abnormal motor movements Speech: normal rate/rhythm/volume of speech Affect: euthymic affect and mood congruent with affect "okay" Thought Process: + circumstantial thought process Thought Content: + cognitive distortions Suicidal Thoughts: denies suicidal thoughts "Doesn't really happen when I'm sober." Homicidal Thoughts: denies homicidal thoughts Hallucinations: no auditory hallucinations and no visual hallucinations Cognition: attention grossly intact and language grossly intact; + recent memory not intact Insight: + poor insight Judgement: + poor judgement Vital Signs (Past 24 Hours): Last Vital Signs Temp 36.6 C 08/21/20 06:42 Pulse 89 08/21/20 06:43 Resp 16 08/21/20 06:42 BP 115/77 08/21/20 06:43 Pulse Ox 98 08/20/20 22:52 Exam Statement: A physical exam was performed in the ER prior to admission to the unit by Dr. Rohit Landrum. I accept that physical as correct/medical clearance for the inpatient physical exam. Results & Data ([facility]) Laboratory Results Laboratory Results - last 24 hr 08/20/20 08/20/20 08/20/20 19:40 19:40 19:40 WBC RBC Hgb Hct MCV MCH MCHC RDW Std Deviation RDW Coeff of Bronson Plt Count MPV Immature Gran % (Auto) Neut % (Auto) Lymph % (Auto) [place] % (Auto) Eos % (Auto) Baso % (Auto) Neut # (Auto) Lymph # (Auto) [place] # (Auto) Eos # (Auto) Baso # (Auto) Immature Gran # (Auto) Sodium Potassium Chloride Carbon Dioxide Anion Gap BUN Creatinine Est Cr Clr Drug Dosing Est GFR ( Amer) Est GFR (Non-Af Amer) BUN/Creatinine Ratio Glucose Calcium Total Bilirubin AST ALT Alkaline Phosphatase Total Protein Albumin Globulin Albumin/Globulin Ratio TSH HCG, Qual Urine Color Yellow Urine Appearance Clear Urine pH 6.5 Ur Specific [place] 1.008 Urine Protein Negative Urine Glucose (UA) Negative Urine Ketones Negative Urine Blood 2+ H Urine Nitrite Negative Urine Bilirubin Negative Urine Urobilinogen Negative Ur Leukocyte Esterase Negative Urine WBC (Auto) 1-5 Urine RBC (Auto) 0-4 U Hyaline Cast (Auto) 1-5 U Epithel Cells (Auto) 5-10 H Urine Bacteria (Auto) 1+ H Urine Mucus Present A Urine Yeast Budding A Salicylates Urine Opiates Screen Neg Ur Methadone, Qual Neg Acetaminophen Urine Barbiturates Neg Ur Phencyclidine (PCP) Neg U Amphetamin/Meth Scrn Neg MDMA (Ecstasy) Screen Neg U Benzodiazepines Scrn Neg Ur Cocaine Metabolite Neg U Marijuana (THC) Screen Pos H U Marijuana THC Carboxy Pending Drug Screen Comment Pending Ethyl Alcohol mg/dL COVID-19 Eval Order SARS-CoV-2 (PCR) Influenza Type A (PCR) Influenza Type B (PCR) RSV (RT-PCR) 08/20/20 08/20/20 08/20/20 19:57 19:57 20:16 WBC 10.32 RBC 4.14 L Hgb 13.9 Hct 38.0 MCV 91.8 MCH 33.6 MCHC 36.6 H RDW Std Deviation 42.4 RDW Coeff of Bronson 12.5 Plt Count 262 MPV 9.9 Immature Gran % (Auto) 0.1 Neut % (Auto) 78.7 Lymph % (Auto) 15.9 [place] % (Auto) 4.8 Eos % (Auto) 0.3 Baso % (Auto) 0.2 Neut # (Auto) 8.12 H Lymph # (Auto) 1.64 [place] # (Auto) 0.50 Eos # (Auto) 0.03 Baso # (Auto) 0.02 Immature Gran # (Auto) 0.01 Sodium Potassium Chloride Carbon Dioxide Anion Gap BUN Creatinine Est Cr Clr Drug Dosing Est GFR ( Amer) Est GFR (Non-Af Amer) BUN/Creatinine Ratio Glucose Calcium Total Bilirubin AST ALT Alkaline Phosphatase Total Protein Albumin Globulin Albumin/Globulin Ratio TSH HCG, Qual Urine Color Urine Appearance Urine pH Ur Specific [place] Urine Protein Urine Glucose (UA) Urine Ketones Urine Blood Urine Nitrite Urine Bilirubin Urine Urobilinogen Ur Leukocyte Esterase Urine WBC (Auto) Urine RBC (Auto) U Hyaline Cast (Auto) U Epithel Cells (Auto) Urine Bacteria (Auto) Urine Mucus Urine Yeast Salicylates Urine Opiates Screen Ur Methadone, Qual Acetaminophen Urine Barbiturates Ur Phencyclidine (PCP) U Amphetamin/Meth Scrn MDMA (Ecstasy) Screen U Benzodiazepines Scrn Ur Cocaine Metabolite U Marijuana (THC) Screen U Marijuana THC Carboxy Drug Screen Comment Ethyl Alcohol mg/dL COVID-19 Eval Order CovFluRsv at [facility] SARS-CoV-2 (PCR) NEGATIVE Influenza Type A (PCR) Negative Influenza Type B (PCR) Negative RSV (RT-PCR) Negative 08/20/20 08/20/20 08/20/20 20:16 20:16 20:16 WBC RBC Hgb Hct MCV MCH MCHC RDW Std Deviation RDW Coeff of Bronson Plt Count MPV Immature Gran % (Auto) Neut % (Auto) Lymph % (Auto) [place] % (Auto) Eos % (Auto) Baso % (Auto) Neut # (Auto) Lymph # (Auto) [place] # (Auto) Eos # (Auto) Baso # (Auto) Immature Gran # (Auto) Sodium 138 Potassium 3.4 L Chloride 105 Carbon Dioxide 25 Anion Gap 8.0 BUN 12 Creatinine 0.76 Est Cr Clr Drug Dosing 90.7 Est GFR ( Amer) 126.4 Est GFR (Non-Af Amer) 109.0 BUN/Creatinine Ratio 15.7 Glucose 81 Calcium 8.9 Total Bilirubin 0.6 AST 21 ALT 31 Alkaline Phosphatase 56 Total Protein 7.8 Albumin 4.5 Globulin 3.3 Albumin/Globulin Ratio 1.4 TSH 1.550 HCG, Qual Urine Color Urine Appearance Urine pH Ur Specific [place] Urine Protein Urine Glucose (UA) Urine Ketones Urine Blood Urine Nitrite Urine Bilirubin Urine Urobilinogen Ur Leukocyte Esterase Urine WBC (Auto) Urine RBC (Auto) U Hyaline Cast (Auto) U Epithel Cells (Auto) Urine Bacteria (Auto) Urine Mucus Urine Yeast Salicylates < 1.7 L Urine Opiates Screen Ur Methadone, Qual Acetaminophen < 2 L Urine Barbiturates Ur Phencyclidine (PCP) U Amphetamin/Meth Scrn MDMA (Ecstasy) Screen U Benzodiazepines Scrn Ur Cocaine Metabolite U Marijuana (THC) Screen U Marijuana THC Carboxy Drug Screen Comment Ethyl Alcohol mg/dL 97.0 H COVID-19 Eval Order SARS-CoV-2 (PCR) Influenza Type A (PCR) Influenza Type B (PCR) RSV (RT-PCR) 08/20/20 20:16 WBC RBC Hgb Hct MCV MCH MCHC RDW Std Deviation RDW Coeff of Bronson Plt Count MPV Immature Gran % (Auto) Neut % (Auto) Lymph % (Auto) [place] % (Auto) Eos % (Auto) Baso % (Auto) Neut # (Auto) Lymph # (Auto) [place] # (Auto) Eos # (Auto) Baso # (Auto) Immature Gran # (Auto) Sodium Potassium Chloride Carbon Dioxide Anion Gap BUN Creatinine Est Cr Clr Drug Dosing Est GFR ( Amer) Est GFR (Non-Af Amer) BUN/Creatinine Ratio Glucose Calcium Total Bilirubin AST ALT Alkaline Phosphatase Total Protein Albumin Globulin Albumin/Globulin Ratio TSH HCG, Qual Negative Urine Color Urine Appearance Urine pH Ur Specific [place] Urine Protein Urine Glucose (UA) Urine Ketones Urine Blood Urine Nitrite Urine Bilirubin Urine Urobilinogen Ur Leukocyte Esterase Urine WBC (Auto) Urine RBC (Auto) U Hyaline Cast (Auto) U Epithel Cells (Auto) Urine Bacteria (Auto) Urine Mucus Urine Yeast Salicylates Urine Opiates Screen Ur Methadone, Qual Acetaminophen Urine Barbiturates Ur Phencyclidine (PCP) U Amphetamin/Meth Scrn MDMA (Ecstasy) Screen U Benzodiazepines Scrn Ur Cocaine Metabolite U Marijuana (THC) Screen U Marijuana THC Carboxy Drug Screen Comment Ethyl Alcohol mg/dL COVID-19 Eval Order SARS-CoV-2 (PCR) Influenza Type A (PCR) Influenza Type B (PCR) RSV (RT-PCR) Current Inpatient Medications Current Inpatient Medications: Current Inpatient Medications Acetaminophen (Acetaminophen 325 Mg Tab) 650 mg PO Q4H PRN PRN Reason: Headache or Minor Fever Stop: 09/20/20 00:32 Al Hydrox/Mg Hydrox/Simethicone (Aluminum/Magnesium Susp 30 Ml Udc) 30 ml PO Q4H PRN PRN Reason: GI Upset Stop: 09/20/20 00:32 Bismuth Subsalicylate (Bismuth Subsalicylate Liqd 236 Ml) 15 ml PO PRN PRN PRN Reason: Loose Stool Stop: 09/20/20 00:32 Hydroxyzine HCl (Hydroxyzine Hcl 25 Mg Tab) 50 mg PO HSZ PRN PRN Reason: Insomnia Stop: 09/20/20 00:32 Last Admin: 08/21/20 01:43 Dose: 50 mg Documented by: Hydroxyzine HCl (Hydroxyzine Hcl 25 Mg Tab) 25 mg PO Q4H PRN PRN Reason: Anxiety Stop: 09/20/20 00:32 Lorazepam (Lorazepam 1 Mg Tab) 1 - 3 mg PO UD PRN; Protocol PRN Reason: EtoH Withdrawal AWSS 6-10+ Stop: 09/20/20 00:32 Magnesium Hydroxide (Magnesium Hydroxide Susp 30 Ml Udc) 30 ml PO DAILY PRN PRN Reason: Constipation Stop: 09/20/20 00:32 Sodium Chloride (Sodium Chloride 0.65% Na Soln 45 Ml (Dale)) 1 - 2 sprays NA PRN PRN PRN Reason: Nasal Dryness/Congestion Stop: 09/20/20 00:32
--- NOTE | 2020-08-22 10:08 | Discharge Summary ---
Date of Service August 22, 2020 History of Present Illness Patient presented to the ER overnight via police on a 302 warrant. She had called crisis the prior evening, they made a plan for her to follow-up with them the following day. She met with them yesterday, and they recommended inpatient treatment, but she left prior to a final disposition being made, so a 302 petition was completed and the patient was brought to the ER. She reported a history of multiple psychiatric diagnoses, previous suicide attempt, not in treatment currently, and indicated a desire to resume treatment. 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 Early this morning she walked toward the highway with intention of walking into traffic. She also stated she thought of taking a bath with an electrical device to electrocute herself. Renetta has a past attempt via hanging in 2016 and stated it was her biggest regret because it didn't work, she wishes she would have then. Renetta also self medicates with alcohol." She told ER staff she had a bad day at work, and called crisis to "vent." She also reported drinking alcohol, and had been drinking prior to presentation, although she was out at the grocery store when police contacted her, and BAL was 97. UDS also + THC. She reported superficial cutting and had several cuts on her arm which she said were self- inflicted. She reports having a medical marijuana card for anxiety, and also re ported using meth and LSD. She was admitted involuntarily and placed on AWSS protocol for alcohol withdrawal. On my assessment she reports she had a bad day at work so went home and "got drunk" then called Crisis "and said a bunch of stuff I didn't mean, you know when you don't like someone at work and you say 'I just wanna strangle them!'" The following day (yesterday) the Crisis Center called her back and asked her to come in for an assessment, and she agreed as she thought they might refer her for outpatient therapy. They recommended inpatient "because they really thought I was gonna kill myself, because of what I said on the phone," and she didn't want that, so "walked out." She simultaneously claims being "browned out" when on the phone due to intoxication and stating she knows exactly what she said and it was misinterpreted. She says she is usually only suicidal when she drinks "but I can't remember the last time I was really drinking," although then reports she was drinking yesterday p/t presentation, was hospitalized a few months ago for alcohol withdrawal, and went to [facility] in Jun. but did not complete treatment and left early. She denies SI currently, states mood has been "pretty good" except for when intoxicated or upset about her job. Denies h/o ximena, psychosis, eating disorder, PTSD and OCD. Reports anxiety in the past which she feels is well controlled with marijuana. 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 Physical Exam Psychiatric Orientation: alert, oriented x 3 and cooperative Apperance: appropriately dressed, appropriately groomed and appeared stated age Eye Contact: good eye contact Motor Behavior: steady gait and station Speech: normal rate/rhythm/volume of speech Affect: euthymic affect "I miss my fianc, but otherwise my mood is pretty good." Thought Process: goal directed thought process Thought Content: reality based without delusions Suicidal Thoughts: denies suicidal thoughts Homicidal Thoughts: denies homicidal thoughts Hallucinations: no auditory hallucinations, no visual hallucinations and no tactile hallucinations Cognition: recent memory grossly intact, remote memory grossly intact, attention grossly intact and language grossly intact Estimated Intelligence: average estimated intelligence Insight: + fair insight Judgement: + fair judgement Vital Signs (Past 24 Hours) Last Vital Signs Temp 36.6 C 08/22/20 06:44 Pulse 96 H 08/22/20 06:45 Resp 16 08/22/20 06:44 BP 111/76 08/22/20 06:45 Pulse Ox 100 08/21/20 22:00 Principal Diagnosis Borderline Personality Disorder Psychiatric Data During the brief course of hospitalization the patient was offered various modalities of psychiatric treatment and education. She participated in individual, group, and recreational therapies. We discussed the option of psychiatric chemotherapy given her history of difficulty regulating her moods, but she noted that she has a history of responding poorly to a number of antidepressant medications and adds that she believes that in most instances the medications made her symptoms worse, rather than better. We discussed the option of genetic testing which might help guide a prescriber to identify those medications which might be less likely to cause side effects, or more likely to provide benefit. The patient expressed interest and said that she hopes to be able to discuss this further with her outpatient provider who may or may not be able to provide the service. Initially, the patient was insistent that the report that she had threatened suicide by electrocution (or by any other means) was untrue, even though she acknowledges that she was drunk. Later, she acknowledged that she has a history of periodically making suicidal threats while drunk and excepted the veracity of the above-referenced report. She was placed on AWSS, but did not exhibit symptoms of alcohol withdrawal. The patient's report is that she had been detoxed from alcohol a little over a month ago and had only relapsed very recently. Our interventions focused primarily on helping the patient develop a safety plan for community reentry. She expressed insight into the fact that she tends to be a loner when it comes to solving problems, and she tells us that she often minimizes or hides her feelings because she tends to be a "private" person. However, she notes that even during the short stay in the hospital she practiced being more direct about what she was feeling and, for example, was able to disclose certain details to her finadege that she had previously chosen to not disclose. Currently, the patient says that she feels that part of her treatment plan will be to open up regularly to her Jaxon padilla, when, for example she is feeling sad or may need a little extra attention or support. We also focused heavily on the patient's goal of maintaining abstinence. As noted above, she indicates that she had maintain abstinence for over a month following detox (without rehab) and she also said that she recognizes that she needs to get back into her alcohol abstinence support groupa group that she has not attended for over a year, but which she had found supportive and helpful in the past. She says that she would prefer not to go to alcoholics anonymous because she objects to the bahai/spirituality elements included in AA, and she prefers a more saccular approach to achieving and maintaining sobriety. 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 She notes that she had only recently started at her current job after having ended another job for a considerable period of time. The patient explains that at her previous job she was always coldly competent and had forgotten what it was like to be a new employee with a learning curve. Accordingly, she recognizes that she probably had been overly sensitive to the criticisms of this particular coworker. The patient reports that her only suicide attempt occurred in 2016 when she made what she describes as a halfhearted attempt to hang herself in a closet. She subsequently changed her mind when the clothing bar was attached from its braces and she realized that she did not wish to proceed in another location. Her threats of suicide, according the patient, are always a product of her being intoxicated, at which time she tends to be prone to hyperbole. The patient also reports that while she excepts that she made a suicidal statement immediately prior to the admission, she emphasizes that she had not had any thoughts of suicide while sober and adds that she regularly says things that she does not mean when she is drunk. Patient's affect was bright, once sober, and she consistently denied any suicidal thoughts, as well as any suicidal plan or intent now, or anytime in the recent past --subsequent to 2015. The treatment team met on the morning of discharge and is in agreement that the patient is prepared to safely return to the community in order to continue her necessary treatment on an outpatient basis. We are emphasizing above all that she worked to maintain sobriety as an essential element in her community safety plan. Day of Discharge Assessment On the day of discharge, the patient was found to be pleasant and fully cooperative with the discharge assessment. She was appropriately dressed and groomed. Her speech was spontaneous and delivered at a normal rate, rhythm and volume. The patient described her mood as "fine," and notes that although she misses her fianc and is sad that he was not able to be with her here in the hospital, she is looking forward to getting home and getting back to work. The patient's affect was bright, and she smiled and laughed appropriately a number of times during the encounter. The patient's thought processes demonstrated tight associations. Her thought content was devoid of any psychotic features, and she did demonstrate a willingness to self examine and consider the possibility that she may have misunderstood or distorted certain recent situational stressors. The patient reported that she is not experiencing any perceptual disturbances. Her judgment and insight are assessed as being fair, and she is clearly motivated to continue in treatment, as well as to maintaining chemical substance abstinence. She convincingly denies suicidal ideation and is fully conversant with her community safety plan. The patient also spontaneously identifies goals for the future and tells us, for example, she and her fianc are planning to once he graduates from college, at which point they plan to move together to [facility] where he reportedly has been accepted for a graduate program at the [employer]. The patient also reports that she is having no thoughts of causing physical harm to the person or property of others. Transition of Care Transition Of Care Record: was reviewed with the patient Advance Directives Advance Directives Information Provided: Yes Advance Directives: No Mental Health Advance Directive: No Living Will: No Power of Alum Operator: No Advance Directives Reason:: Declines as Mental Health Visit. Risk Factors Assessment Male: No : Yes Do You Have Access To A Gun?: No Health Problems: No Mental Health Diagnoses: Yes Substance Use Disorders: Yes Previous Attempt: Yes Previous Attempt; Highly Lethal: Yes Previous Attempt; Planned: Yes Previous Attempt; Didn't Tell Anyone: Yes Family History of Suicide: No Previous Psychiatric Hospitalization: Yes Hopelessness: No Smoker: No Protective Factors Assessment Orthodoxy Beliefs: No : No Responsible for Young Children: No Employed: Yes ([employer]) Stable Relationships: Yes Supportive Family: Yes Good Rapport with Provider: No Absence of Any Risk Factors Above: No Tobacco Cessation at Discharge Tobacco Cessation Medication Prescribed at Discharge: Not Applicable/Non-Smoker Total Time Total Time Spent: Greater Than 30 Minutes Total Time Includes: Examination of the patient, Discharge Planning, Medication Reconciliation and Communication with other providers Discharge Data Lab Results 08/20/20 08/20/20 08/20/20 19:40 19:40 19:57 WBC RBC Hgb Hct MCV MCH MCHC RDW Std Deviation RDW Coeff of Bronson Plt Count MPV Immature Gran % (Auto) Neut % (Auto) Lymph % (Auto) [place] % (Auto) Eos % (Auto) Baso % (Auto) Neut # (Auto) Lymph # (Auto) [place] # (Auto) Eos # (Auto) Baso # (Auto) Immature Gran # (Auto) Sodium Potassium Chloride Carbon Dioxide Anion Gap BUN Creatinine Est Cr Clr Drug Dosing Est GFR ( Amer) Est GFR (Non-Af Amer) BUN/Creatinine Ratio Glucose Calcium Total Bilirubin AST ALT Alkaline Phosphatase Total Protein Albumin Globulin Albumin/Globulin Ratio TSH HCG, Qual Urine Color Yellow Urine Appearance Clear Urine pH 6.5 Ur Specific [place] 1.008 Urine Protein Negative Urine Glucose (UA) Negative Urine Ketones Negative Urine Blood 2+ H Urine Nitrite Negative Urine Bilirubin Negative Urine Urobilinogen Negative Ur Leukocyte Esterase Negative Urine WBC (Auto) 1-5 Urine RBC (Auto) 0-4 U Hyaline Cast (Auto) 1-5 U Epithel Cells (Auto) 5-10 H Urine Bacteria (Auto) 1+ H Urine Mucus Present A Urine Yeast Budding A Salicylates Urine Opiates Screen Neg Ur Methadone, Qual Neg Acetaminophen Urine Barbiturates Neg Ur Phencyclidine (PCP) Neg U Amphetamin/Meth Scrn Neg MDMA (Ecstasy) Screen Neg U Benzodiazepines Scrn Neg Ur Cocaine Metabolite Neg U Marijuana (THC) Screen Pos H Ethyl Alcohol mg/dL COVID-19 Eval Order CovFluRsv at [facility] SARS-CoV-2 (PCR) Influenza Type A (PCR) Influenza Type B (PCR) RSV (RT-PCR) 08/20/20 08/20/20 08/20/20 19:57 20:16 20:16 WBC 10.32 RBC 4.14 L Hgb 13.9 Hct 38.0 MCV 91.8 MCH 33.6 MCHC 36.6 H RDW Std Deviation 42.4 RDW Coeff of Bronson 12.5 Plt Count 262 MPV 9.9 Immature Gran % (Auto) 0.1 Neut % (Auto) 78.7 Lymph % (Auto) 15.9 [place] % (Auto) 4.8 Eos % (Auto) 0.3 Baso % (Auto) 0.2 Neut # (Auto) 8.12 H Lymph # (Auto) 1.64 [place] # (Auto) 0.50 Eos # (Auto) 0.03 Baso # (Auto) 0.02 Immature Gran # (Auto) 0.01 Sodium 138 Potassium 3.4 L Chloride 105 Carbon Dioxide 25 Anion Gap 8.0 BUN 12 Creatinine 0.76 Est Cr Clr Drug Dosing 90.7 Est GFR ( Amer) 126.4 Est GFR (Non-Af Amer) 109.0 BUN/Creatinine Ratio 15.7 Glucose 81 Calcium 8.9 Total Bilirubin 0.6 AST 21 ALT 31 Alkaline Phosphatase 56 Total Protein 7.8 Albumin 4.5 Globulin 3.3 Albumin/Globulin Ratio 1.4 TSH 1.550 HCG, Qual Urine Color Urine Appearance Urine pH Ur Specific [place] Urine Protein Urine Glucose (UA) Urine Ketones Urine Blood Urine Nitrite Urine Bilirubin Urine Urobilinogen Ur Leukocyte Esterase Urine WBC (Auto) Urine RBC (Auto) U Hyaline Cast (Auto) U Epithel Cells (Auto) Urine Bacteria (Auto) Urine Mucus Urine Yeast Salicylates Urine Opiates Screen Ur Methadone, Qual Acetaminophen Urine Barbiturates Ur Phencyclidine (PCP) U Amphetamin/Meth Scrn MDMA (Ecstasy) Screen U Benzodiazepines Scrn Ur Cocaine Metabolite U Marijuana (THC) Screen Ethyl Alcohol mg/dL COVID-19 Eval Order SARS-CoV-2 (PCR) NEGATIVE Influenza Type A (PCR) Negative Influenza Type B (PCR) Negative RSV (RT-PCR) Negative 08/20/20 08/20/20 08/20/20 20:16 20:16 20:16 WBC RBC Hgb Hct MCV MCH MCHC RDW Std Deviation RDW Coeff of Bronson Plt Count MPV Immature Gran % (Auto) Neut % (Auto) Lymph % (Auto) [place] % (Auto) Eos % (Auto) Baso % (Auto) Neut # (Auto) Lymph # (Auto) [place] # (Auto) Eos # (Auto) Baso # (Auto) Immature Gran # (Auto) Sodium Potassium Chloride Carbon Dioxide Anion Gap BUN Creatinine Est Cr Clr Drug Dosing Est GFR ( Amer) Est GFR (Non-Af Amer) BUN/Creatinine Ratio Glucose Calcium Total Bilirubin AST ALT Alkaline Phosphatase Total Protein Albumin Globulin Albumin/Globulin Ratio TSH HCG, Qual Negative Urine Color Urine Appearance Urine pH Ur Specific [place] Urine Protein Urine Glucose (UA) Urine Ketones Urine Blood Urine Nitrite Urine Bilirubin Urine Urobilinogen Ur Leukocyte Esterase Urine WBC (Auto) Urine RBC (Auto) U Hyaline Cast (Auto) U Epithel Cells (Auto) Urine Bacteria (Auto) Urine Mucus Urine Yeast Salicylates < 1.7 L Urine Opiates Screen Ur Methadone, Qual Acetaminophen < 2 L Urine Barbiturates Ur Phencyclidine (PCP) U Amphetamin/Meth Scrn MDMA (Ecstasy) Screen U Benzodiazepines Scrn Ur Cocaine Metabolite U Marijuana (THC) Screen Ethyl Alcohol mg/dL 97.0 H COVID-19 Eval Order SARS-CoV-2 (PCR) Influenza Type A (PCR) Influenza Type B (PCR) RSV (RT-PCR) Hospital Course (1) Suicidal ideation: 08/21 - Patient denies SI and is minimizing events that led to admission. Alcohol and maladaptive personality/coping likely playing a role. -Encourage patient to attend groups, participate in therapy, work on healthy coping skills and discharge safety plan. -Family meeting with randy whom she lives with to review discharge and safety plan. 08/22 -The patient is continuing to deny suicidal ideation. It can be said that she is no longer minimizing the events that led to admission, and she expresses insight into the fact that she has a history of repeatedly holding feelings inside, managing stress and anxiety through drinking, and then making threats of suicide while drunk as a way of relieving tension and communicating distress. The patient does seem able to understand that this is dysfunctional and does not serve her best interests. Also, the patient is more fully disclosed of about her history of alcohol dependence, and, for example, is able to tell us that a year ago she was spending almost every day intoxicated and essentially "catatonic drunk." -The patient has developed a plan for community safety and is fully conversant with this plan. She understands that a an essential part of her plan for community safety is to achieve and maintain lasting alcohol/drug sobriety. Also, the patient says that one of the things she is learned in the hospital is the importance of not attempting to hide feelings from her support system and, within this context, she notes that she has already started practicing this with her finadege during telephone conversations. (2) Borderline personality disorder: 08/21 -patient states she was given this diagnosis is after psychological testing at the [facility] psychological clinic. Recommend return to outpatient therapy to focus on using healthier coping skills. -Patient denies symptoms consistent with a major depressive disorder, and instead suicidal thoughts occur when she is intoxicated. 08/22 -The patient makes it clear that she has struggled for many years with the task of self regulating her mood. She has not been able to tolerate a number of antidepressant medications, and says that she is reluctant to be a "guinea pig" and try still other antidepressants. Medication such as lamotrigine may be considered, but the first goal will be to achieve and maintain sobriety. (3) Alcohol use disorder: 08/21 - h/o alcohol withdrawal requiring medical hospitalization, on [facility] protocol here -Brief intervention was offered and accepted Intervention was greater than 5 min in length. Brief interventions include: 1. Assess Readiness to Quit, 2. Advise: Help Patient to Reduce or Abstain from Alcohol, 3. Agree: Set Specific, Feasible Goals, 4. Assist: Anticipate barriers, Problem-Solving Solutions. Social work to 5. Arrange: Referrals to appropriate treatment. Summary of intervention: The patient is in precontemplation stage with regards to transtheoretical model of change. The patient is advised to decrease alcohol consumption due to depressant effects and risk of interactions with prescription medications. The patient agreed to recovery protocol and will be provided with recovery materials to continue to education self on how to cope with their condition without drinking. 4/2 -Following participation in individual, group and recreational therapy the patient is more willing to admit the degree to which alcohol abuse has been a problem for her. She had initially minimized her use, but acknowledges that although it is true that she has been sober for about a month, prior to the relapse that eventually led to her current admission, she had been drinking quite heavily on a daily basis. -The patient spontaneously reported her intent to rejoin a self-help support group that she had previously participated in with some success. She does not plan to participate in alcoholics anonymous because she describes her self as an atheist and does not like the spiritual/bahai aspects of AA. The patient also says that she hopes to work on her alcohol dependence issues in her outpatient therapy. (4) Cannabis abuse: 08/21 - Pt reports having a medical marijuana card, and during medical hospitalization she was advised to stop using THC due to cannabis hyperemesis syndrome, but has continued to use it. 2 -the patient was again advised to not use medical marijuana given her his tory of alcohol dependence and ongoing difficulty regulating mood. This will need to be one of the foci of outpatient treatment. Mental Health & Subst Abuse Tx Therapist Name of Therapist: [employer] Robert Therapist's Date of Therapist Appointment: 08/28/20 Time of Therapist Appointment: 1 pm Therapy Appointment Comment: They will email you paperwork. Link will be sent for Virtual appointment Therapist Release of Information: Obtained, Reviewed and Signed Case Preparer And Liner Name of Case Preparer And Liner: None Post Discharge Appointments Primary Care Physician Name Of Family Doctor: Pt refuses Smoking Cessation Counseling Tobacco Cessation Medication Prescribed at Discharge: Not Applicable/Non-Smoker Contact Information Discharge Discharge Address: [address] [place] [address] Discharge Plan Discharge Items Patient Disposition: Home - Self-Care Reason For Visit: BPD Discharge Diagnosis: Borderline Personality Disorder Activity: Resume your previous activity Activity Comment: No alcohol Non-emergency contact: Psychiatrist and Therapist Call non-emergency contact if: you have any medication questions and your symptoms worsen Follow-up/Referrals: PCP,NO [Primary Care Provider] - Diet: Regular Addtl Attending Provider Instructions: SPECIAL CARE INSTRUCTIONS: 1. Follow through with your scheduled aftercare appointments. If unable to keep an appointment, please call to reschedule. 2. Take your medication only as prescribed. Medication should not be changed or stopped without the approval of your doctor. In the event of worsening symptoms or concerns about side effects, contact your doctor immediately. 3. Utilize new healthy coping skills, anger management skills, and stress management skills learned during your hospitalization. Journal feelings and process them with a support person. Identify stressors or situations that may result in relapse, deterioration or inappropriate behaviors and develop a plan to deal with those issues. 4. If your coping skills are ineffective and you are in crisis, contact your outpatient providers for direction. If unable to reach your providers, please call the [facility] CRISIS LINE AT , go to the [facility] walk-in center at [address], [address], [place], or go to the closest Emergency Room. 5. Avoid alcohol and un-prescribed drugs. 6. You have been provided with the Mental Health Advance Directives Pamphlet for your review. AFTERCARE APPOINTMENTS: * Please call your insurance company prior to your scheduled appointment to confirm your aftercare providers are covered. Take your insurance information to your appointments. WHO TO CALL AND WHEN: Medical Emergencies: For questions or emergencies related to your hospital stay, please contact the Inpatient Behavioral Health Unit at [phone]. A home health clinician is on-call 13/12 for the Behavioral Health Unit for emergencies At any time you feel your situation is an emergency, you may also call 911 immediately. Pending Studies at Discharge: No Stand-Alone Forms: My [facility] [employer], Smoking Cessation Medications and DC Order Prescriptions: No Action No Known Home Medications RF: 0 Discharge Orders: Discharge Order (Routine); Ordered 08/22/20 Ordered By: Robi Arriaga/Other Patient Handouts: Recovering from Addiction, Recovering from Addiction Coping ... Admission Data Admit Date/Time: 08/21/20 00:33 Attending Provider: Hannah Cervantes Admit Provider: Hannah Cervantes Primary Care Provider: PCP,ASHLI Coding [place] [address] D/C day mgmt > 30 min Patient Type Established History Expanded Problem Focused Exam Expanded Problem Focused Medical Decision Making Moderate Complexity Diagnoses Suicidal ideation R45.851 Borderline personality disorder F60.3 Alcohol use disorder Cannabis abuse F12.10 Time Spent (min) 60
[2020-08-23 06:52] LABS: Marijuana Quant, GCMS Urine 36 ng/mL (<5)
== END 2020-08-22 10:35 | disposition home or self-care (01) | DRG 883 ==
LOC: EDSEX → ED 19:25 → 3S 08-21 00:33